=== PATIENT | male | born 1995 | race African-American/Black ===

== ENCOUNTER 2019-12-31 15:50 | Emergency (ER) | payer SELFPAY ==
[2019-12-31 16:14] VITALS: BP 139/94; PULSE 78; RESP 16; TEMP 36.5; O2SAT 99
--- NOTE | 2019-12-31 16:36 | ED.GENADULT ---
HPI - General Adult General Chief complaint: Upper Respiratory Infection Stated complaint: allergies Time Seen by Provider: 12/31/19 16:22 Source: patient and RN notes reviewed Mode of arrival: ambulatory Limitations: no limitations History of Present Illness HPI narrative: Patient presents today requesting a note to return to work. He called into work on 12/25/2019 with symptoms of runny nose, sneezing, headache. States these are normal allergy symptoms for him. He took a Claritin that day and felt better approximately 4 hours later. He does not currently have any symptoms. MD complaint: Return to work note Related Data Home Medications Medication Instructions Recorded Confirmed No Home Medications 12/31/19 12/31/19 Allergies Allergy/AdvReac Type Severity Reaction Status Date / Time No Known Allergies Allergy Verified 12/31/19 16:16 Review of Systems Review of Systems: Narrative: CONSTITUTIONAL: Denies body aches, fever, chills, or sweats. EYES: Denies visual changes, redness, or discharge. ENT: Denies rhinorrhea, congestion, sore throat, or otalgia. CARDIOVASCULAR: Denies chest pain, palpitations, or edema. RESPIRATORY: Denies cough or dyspnea. GASTROINTESTINAL: Denies abdominal pain, nausea, vomiting, or diarrhea. GENITOURINARY: Denies dysuria or hematuria. SKIN: Denies rash, itching, or wounds. MUSCULOSKELETAL: Denies back pain, joint pain, or myalgia. NEUROLOGIC: Denies headache, numbness, tingling, or weakness. PSYCH: Denies depression or anxiety. PMFSH Social History Social History Gender identity (if verbalized by the patient): Male Comments At time of signature, I have reviewed and agree with nursing past medical, surgical, social and family history unless otherwise noted. Please see nursing chart for further information. There is no relevant family history pertinent to the presenting complaint Exam Narrative: Exam Narrative: GENERAL: Well-appearing, well-nourished, and in no acute distress. HEAD: Normocephalic, atraumatic. EYES: EOMI. No redness or drainage. Conjunctivae normal. ENT: Mucous membranes pink and moist. Nares clear. No rhinorrhea. TMs normal bilaterally. Throat normal. Uvula midline. NECK: Normal AROM. Supple. No lymphadenopathy. CHEST: No respiratory distress. Clear to auscultation. HEART: Regular rate and rhythm. No murmur appreciated. Normal peripheral pulses. EXTREMITIES: Normal range of motion. No edema. SKIN: Warm, dry, no rash. Capillary refill normal. Normal skin turgor. NEURO: No focal deficits. Alert and oriented x3. Gait steady. PSYCH: Normal affect. No signs of depression or anxiety. Course Vital Signs Vital signs: Vital Signs Temperature 97.7 F 12/31/19 16:14 Pulse Rate 78 12/31/19 16:14 Respiratory Rate 16 12/31/19 16:14 Blood Pressure 139/94 H 12/31/19 16:14 Pulse Oximetry 99 12/31/19 16:14 Temperature 97.7 F 12/31/19 16:14 Pulse Rate 78 12/31/19 16:14 Respiratory Rate 16 12/31/19 16:14 Blood Pressure 139/94 H 12/31/19 16:14 Pulse Oximetry 99 12/31/19 16:14 Reviewed. Pt has been instructed to follow up with his PCP regarding his elevated blood pressure today. Medical Decision Making Differential Diagnosis Differential Diagnosis: URI, rhinitis, seasonal allergies, sinusitis Vital Signs Vital Signs: Vital Signs Temperature 97.7 F 12/31/19 16:14 Pulse Rate 78 12/31/19 16:14 Respiratory Rate 16 12/31/19 16:14 Blood Pressure 139/94 H 12/31/19 16:14 Pulse Oximetry 99 12/31/19 16:14 Temperature 97.7 F 12/31/19 16:14 Pulse Rate 78 12/31/19 16:14 Respiratory Rate 16 12/31/19 16:14 Blood Pressure 139/94 H 12/31/19 16:14 Pulse Oximetry 99 12/31/19 16:14 Critical Care Time Critical Care Time Critical Care Time: No Discharge Plan Discharge Clinical Impression: Encounter to obtain excuse from work Patient Disposition: Home, Self-Care Condition: Stable Instruct
== END 2019-12-31 16:40 | disposition home or self-care (01) ==
PROVIDERS: Emergency Provider Nurse Practitioner
DX: Z02.89 Encounter for other administrative examinations (principal); R03.0 Elevated blood-pressure reading, without diagnosis of hypertension
CPT/HCPCS: 99201; G0463

== ENCOUNTER 2020-03-07 17:37 | Emergency (ER) | payer OTHER, SELFPAY ==
[2020-03-07 17:38] VITALS: BP 155/79; PULSE 78; RESP 18; TEMP 36.2; O2SAT 98
--- NOTE | 2020-03-07 19:00 | ED.WOUNDLAC ---
HPI - Wound/Laceration General Chief Complaint: Wound/Laceration Stated Complaint: finger lac Time Seen by Provider: 03/07/20 17:57 Source: patient Mode of arrival: ambulatory Limitations: no limitations History of Present Illness HPI narrative: Patient is a 24-year-old male who presents with laceration of the mid phalanx of the left index finger that occurred just prior to arrival patient cut the finger on a sharp piece of metal. Patient has mild aching pain worse with touch and activity. Patient notes that the tetanus is not up-to-date. Patient denies radicular symptoms or paresthesias or other complaints yesterday. Related Data Home Medications Medication Instructions Recorded Confirmed No Home Medications 12/31/19 12/31/19 Allergies Allergy/AdvReac Type Severity Reaction Status Date / Time No Known Allergies Allergy Verified 03/07/20 17:37 Review of Systems Review of Systems: All systems reviewed & are unremarkable except as noted in HPI and below PMFSH Social History Social History Gender identity (if verbalized by the patient): Male Exam Narrative: Exam Narrative: GENERAL: Well-appearing, well-nourished, and in no acute distress. HEAD: Normocephalic, atraumatic. EYES: PERRLA and EOMI. ENT: Nares clear, no rhinorrhea or epistaxis. Mucous membranes moist. EXTREMITIES: Normal range of motion. No edema. SKIN: Warm, dry, no rash. 2 cm superficial linear laceration of the mid phalanx of the left index finger palmar surface NEURO: No focal deficits. Alert and oriented x3. Neurovascularly intact PSYCH: Normal mood and affect. Course Course Emergency Course: Patient in the room in no distress aware of case findings treatment plan and diagnosis Vital Signs Vital signs: Vital Signs Temperature 97.1 F L 03/07/20 17:38 Pulse Rate 78 03/07/20 17:38 Respiratory Rate 18 03/07/20 17:38 Blood Pressure 155/79 H 03/07/20 17:38 Pulse Oximetry 98 03/07/20 17:38 Temperature 97.1 F L 03/07/20 17:38 Pulse Rate 78 03/07/20 17:38 Respiratory Rate 18 03/07/20 17:38 Blood Pressure 155/79 H 03/07/20 17:38 Pulse Oximetry 98 07/12/20 17:38 Procedures Laceration Laceration 1: Date: 03/07/20 Time: 19:02 Site: upper extremity Side (If applicable): left Size (cm): 2 Description: linear Depth: simple, single layer Local Anesthetic: lidocaine 1% Pre-repair: wound explored, irrigated and irrigated extensively ====== Skin Level ====== Skin layer closed with: nylon Size (cm): 5-0 Number of sutures: 4 ====== Subcutaneous Layer ====== ====== Muscle Layer ====== ====== Tendon Layer ====== Dressing: Antibiotic ointment nonadhesive 4 x 4 and Coban placed post procedure MDM - Wound/Laceration MDM Narrative Medical decision making narrative: Patients injury or pain is consistent with musculoskeletal etiology. No signs of neurological or vascular compromise on exam. Compartments and tisues are soft without signs of compartment syndrome. Pain is felt appropriate for further evaluation on an outpatient basis. Patient given tetanus and had wound closed in the emergency department provided with reasons to return Discharge Plan Discharge Clinical Impression: Laceration Patient Disposition: Home, Self-Care Condition: Stable Instructions: Antibiotic Form, Laceration (DC) Additional Instructions: Keep wound clean and dry. Do not soak, take baths, or swim until wound is completely healed. If any signs of infection such as redness, swelling, increasing pain, drainage of purulent discharge, streaks up your extremity develop, seek medical attention immediately. Followup with your primary care provider in [7] days for suture removal. [] Prescriptions: No Action No Home Medications RF: 0 Follow-up/Referrals: [facility]
[2020-03-07] MEDS: TETANUS,DIPHTHERIA,AC PERTUSSIS ADULT (0.5 ML) BOOSTRIX IM (19:01)
[2020-03-07 19:21] VITALS: BP 140/88; PULSE 70; RESP 20; O2SAT 98
== END 2020-03-07 19:25 | disposition home or self-care (01) ==
PROVIDERS: Emergency Provider Emergency Medicine
DX: S61.211A Laceration without foreign body of left index finger without damage to nail, initial encounter (principal); W26.8XXA Contact with other sharp object(s), not elsewhere classified, initial encounter; Z23 Encounter for immunization
CPT/HCPCS: 12001; 90471; 90715; 99282

== ENCOUNTER 2020-09-24 20:02 | Emergency (ER) | payer OTHER, SELFPAY ==
--- NOTE | ~2020-09-24 | CT_ITS ---
EXAMINATION: CT abdomen pelvis w con DATE: 09/24/2020 21:01 INDICATION: Left upper quadrant abdominal pain TECHNIQUE: Computed tomography (CT) of the abdomen and pelvis was performed with 100 cc Omnipaque 350 intravenous contrast. Automated exposure control and iterative reconstruction technique were employe d. Exam dose: 430.38 mGy-cm total exam DLP. COMPARISON: None. FINDINGS: The lung bases are clear. Normal heart size. No pericardial or pleural effusion. The liver, gallbladder, bile ducts, spleen are unremarkable. No bile duct dilatation. There is peripancreatic fluid and fluid along the left anterior pararenal fascia, suggesting acute in terstitial edematous pancreatitis. No abscess is evident. No pancreatic calcification or ductal dilat ation. No pancreatic mass lesion is evident. Normal morphology of the adrenal glands. No renal mass lesion. No urinary tract calculus or hydroureteronephrosis. The urinary bladder is unre markable. Normal prostate gland and seminal vesicles. Normal caliber of the abdominal aorta. No intraperitoneal or retroperitoneal or pelvic mass lesion or adenopathy or ascites. Normal appendix. No bowel obstruction, bowel wall thickening, pneumatosis or intraperitoneal free air . Transitional first sacral vertebra. IMPRESSION: Acute interstitial edematous pancreatitis Reviewed, dictated and finalized at [facility] Reviewed, dictated and finalized at [facility]. ESSORI PROGRAM DIRECTOR
[2020-09-24 20:07] VITALS: PULSE 112; RESP 24; TEMP 36.8; O2SAT 100
--- NOTE | 2020-09-24 20:12 | ECG_ITS ---
Measurements Intervals [place] Rate: 102 P: 72 [place]: 139 QRS: 52 QRSD: 89 T: 31 QT: 332 QTc: 434 Interpretive Statements SINUS TACHYCARDIA MINIMAL Q WAVES- ANTEROLAT/HIGH LAT LEADS BORDERLINE ECG Electronically Signed On 09-24-2020 21:57:53 MACHINE STUFFER by Danny Villarreal D.O.
[2020-09-24 20:28] LABS: Basophils Percent Auto 0.3 % (0.2-1.2); Eosinophils Absolute Auto 0.1 K/mm3 (0-0.3); Hematocrit 45.9 % (42.0-52.0); Hemoglobin 15.3 g/dL (14.0-18.0); Immature Granulocyte Absolute 0.03 K/mm3 (0.00-0.031); Immature Granulocyte Percent A 0.3 % (0-0.5); Lymphocytes Absolute Auto 2.24 K/mm3 (0.9-3.2); Lymphocytes Percent Auto 21.2 % (18.3-44.2); Mean Corpuscular HGB Conc 33.3 g/dl (32-36); Mean Corpuscular Hemoglobin 28.5 pg (26-34); Mean Corpuscular Volume 85.6 fl (80-100); Mean Platelet Volume 8.8 fl (7.4-10.4); Monocytes Absolute Auto 1.2 K/mm3 (0.1-0.6); Monocytes Percent Auto 11.4 % (2.6-8.5); Neutrophils Percent Auto 65.8 % (45.5-73.1); Platelet Count Result 316 k/mm3 (150-375); Red Blood Count 5.36 M/mm3 (4.6-6.20); Red Cell Distribution Width 13.4 % (11.5-14.5); White Blood Count 10.6 K/mm3 (4.5-10.0)
--- NOTE | 2020-09-24 20:30 | ED.CHESTPAIN ---
HPI - Chest Pain General Chief Complaint: Chest Pain Stated Complaint: chest pain Time Seen by Provider: 09/24/20 20:09 Source: patient Mode of arrival: ambulatory Limitations: no limitations History of Present Illness HPI narrative: A 25-year-old male comes into the emergency department with complaints of chest pain. When asked the patient actually motions more towards his left upper quadrant for the chest pain. He states that coughing sneezing and certain movements do seem to make this worse. He does also note that eating and drinking have made it worse. Patient states that he had 1 beer yesterday, denies any other alcohol use. He states that he has been nauseated but not vomited. He denies any changes to his bowels. Related Data Allergies Allergy/AdvReac Type Severity Reaction Status Date / Time No Known Allergies Allergy Verified 09/24/20 20:11 Review of Systems Review of Systems: Narrative: CONSTITUTIONAL: Denies fever, chills, or sweats. EYES: Denies visual changes, redness, or discharge. ENT: Denies rhinorrhea, congestion, sore throat, or otalgia. CARDIOVASCULAR: Denies chest pain, palpitations, or edema. RESPIRATORY: Denies cough or dyspnea. GASTROINTESTINAL: Denies nausea, vomiting, or diarrhea. Endorses abdominal pain GENITOURINARY: Denies dysuria or hematuria. SKIN: Denies rash or itching. MUSCULOSKELETAL: Denies back pain, joint pain, or myalgia. NEUROLOGIC: Denies headache, numbness, dizziness, or weakness. PSYCHIATRIC: Denies anxiety or depression. [facility] Social History Social History Gender identity (if verbalized by the patient): Male Exam Narrative: Exam Narrative: GENERAL: Well-appearing, well-nourished, and in no acute distress. HEAD: Normocephalic, atraumatic. EYES: PERRLA and EOMI. ENT: Nares clear, no rhinorrhea or epistaxis. Mucous membranes moist. Oropharynx without tonsillar hypertrophy exudate or other lesions. Bilateral TMs pearly arango nonbulging NECK: Supple. No adenopathy or masses. No carotid bruits or JVD CHEST: Clear to auscultation. No respiratory distress. No wheezes rales or rhonchi HEART: Regular rate and rhythm. No murmur heard. Normal peripheral pulses. ABDOMEN: Soft, nondistended, normal active bowel sounds. Tenderness to palpation of the left upper quadrant EXTREMITIES: Normal range of motion. No edema. SKIN: Warm, dry, no rash. NEURO: No focal deficits. Alert and oriented x3. PSYCH: Normal mood and affect. Course Reevaluation(s) Reevaluation #1: Reevaluated patient and provided care update. Patient states that he is feeling somewhat better after the pain medicines. Informed him of his diagnosis of pancreatitis and explained to him the treatment plan. Patient politely declines admission to the hospital at this time. I did offer to him again explaining the process that his pain could get worse. Patient again states that he understands but is scared of hospitals and does not want to stay he would prefer to go home and treat himself there. Because of this I did spend a great length of time explaining to the patient that he will need to be on clear liquids for the next couple of days, I will prescribe him pain medicines and nausea medicines. Patient verbalizes understanding of the plan. I did inform him that if he gets worse he is welcome to come back to the emergency department at any time. Time: 21:54 Vital Signs Vital signs: Vital Signs Temperature 36.8 C 09/24/20 20:07 Pulse Rate 112 H 09/24/20 20:07 Respiratory Rate 24 H 09/24/20 20:07 Pulse Oximetry 100 09/24/20 20:07 Temperature 36.8 C 09/24/20 20:07 Pulse Rate 112 H 09/24/20 20:07 Respiratory Rate 24 H 09/24/20 20:07 Pulse Oximetry 100 09/24/20 20:07 MDM - Chest Pain MDM Narrative Medical decision making narrative: In brief this 25-year-old male comes into the emergency department with complaints of he described as chest pain reese
[2020-09-24 20:44] LABS: Alanine Aminotransferase 48 U/L (4-50); Albumin Level 4.6 g/dL (3.5-5.1); Alkaline Phosphatase 70 U/L (38-126); Anion Gap 6 mmol/L (8-16); Aspartate Amino Transferase 67 U/L (17-59); Bilirubin,Total 0.7 mg/dL (0.2-1.3); Blood Urea Nitrogen 12 mg/dL (9-20); Calcium 9.4 mg/dL (8.4-10.2); Carbon Dioxide 27 mmol/L (22-30); Chloride 102 mmol/L (98-107); Estimated CRCL calculation 90 ml/min; Estimated Glomerular Filt Rate > 60; Glucose 108 mg/dL (75-110); Lipase 427 U/L (23-300); Potassium 3.9 mmol/L (3.4-5.0); Sodium 135 mmol/L (137-145)
[2020-09-24] MEDS: LACTATED RINGERS 1,000 ML 999 ML IV CONT (20:46)
[2020-09-24] MEDS: BELLADONNA ALK/PHENOB ELIX 10 ML, MAG HYDROX/ALUMINUM HYD/SIMETH 30 ML, LIDOCAINE HCL 2... PO (20:46)
[2020-09-24] MEDS: KETOROLAC 15 MG/ML VIAL (*BKC) IV PUSH (20:47)
[2020-09-24 20:55] LABS: Troponin I < 0.012 ng/mL (0.000-0.034)
--- NOTE | 2020-09-24 22:07 | PC.NURSE ---
received report from Adele PETERSEN. patient here with left sided chest pain. (+) pancreatitis. waiting for all tests to be resulted.
[2020-09-24 22:37] VITALS: BP 162/86; PULSE 89; O2SAT 100
== END 2020-09-24 22:24 | disposition home or self-care (01) ==
PROVIDERS: Emergency Provider Emergency Medicine
DX: U07.1 COVID-19 (principal); K85.00 Idiopathic acute pancreatitis without necrosis or infection; R00.0 Tachycardia, unspecified; R94.31 Abnormal electrocardiogram [ECG] [EKG]
CPT/HCPCS: 36415; 74177; 80053; 83690; 84484; 85025; 93005; 96361; 96374; 99284; A9270; J1885; J7120; Q9967

== ENCOUNTER 2020-12-05 03:24 | Emergency (ER) | payer SELFPAY ==
[2020-12-05] VITALS (8 sets, daily range): BP systolic 111–151; BP diastolic 81–108; PULSE 88–114; RESP 16–20; TEMP 36.7; O2SAT 97–100
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
--- NOTE | ~2020-12-05 | XR_ITS ---
EXAMINATION: XR chest 1V portable EXAM DATE: 12/05/2020 04:11 INDICATION: Shortness of breath. Trauma. TECHNIQUE: Portable AP frontal chest x-ray was obtained. There is no prior study for comparison. FINDINGS: The lungs are clear. There are no pleural effusions. The cardiomediastinal silhouette is within normal limits. There is no pneumothorax suspected. The bones and soft tissues are unremarkab le. IMPRESSION: No acute cardiopulmonary findings. Reviewed, dictated and finalized at [facility].
[2020-12-05] MEDS: LORazepam INJ (*CRX) 2 MG/ML VIAL 1 MG IV PUSH (03:45)
[2020-12-05] MEDS: SODIUM CHLORIDE 0.9% IV 1,000 ML 999 ML IV CONT (03:45)
[2020-12-05 03:49] LABS: Basophils Absolute Auto 0.1 K/mm3 (0.0-0.1); Basophils Percent Auto 1.1 % (0.2-1.2); Eosinophils Percent Auto 0.5 % (0-4.4); Hematocrit 47.4 % (42.0-52.0); Hemoglobin 15.4 g/dL (14.0-18.0); Immature Granulocyte Absolute 0.03 K/mm3 (0.00-0.031); Immature Granulocyte Percent A 0.5 % (0-0.5); Lymphocytes Absolute Auto 2.66 K/mm3 (0.9-3.2); Lymphocytes Percent Auto 48.2 % (18.3-44.2); Mean Corpuscular HGB Conc 32.5 g/dl (32-36); Mean Corpuscular Hemoglobin 27.9 pg (26-34); Mean Platelet Volume 8.5 fl (7.4-10.4); Monocytes Absolute Auto 0.5 K/mm3 (0.1-0.6); Monocytes Percent Auto 8.3 % (2.6-8.5); Neutrophils Absolute Auto 2.3 K/mm3 (1.3-6.7); Neutrophils Percent Auto 41.4 % (45.5-73.1); Platelet Count Result 366 k/mm3 (150-375); Red Blood Count 5.51 M/mm3 (4.6-6.20); Red Cell Distribution Width 15.5 % (11.5-14.5); White Blood Count 5.5 K/mm3 (4.5-10.0)
[2020-12-05 04:03] LABS: Ethanol 298 mg/dL (<10)
[2020-12-05 04:05] LABS: Alanine Aminotransferase 38 U/L (4-50); Albumin Level 4.8 g/dL (3.5-5.1); Alkaline Phosphatase 54 U/L (38-126); Anion Gap 12 mmol/L (8-16); Aspartate Amino Transferase 49 U/L (17-59); Blood Urea Nitrogen 13 mg/dL (9-20); Calcium 8.6 mg/dL (8.4-10.2); Carbon Dioxide 25 mmol/L (22-30); Chloride 110 mmol/L (98-107); Estimated Glomerular Filt Rate > 60; Glucose 102 mg/dL (75-110); Potassium 3.9 mmol/L (3.4-5.0); Sodium 147 mmol/L (137-145)
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
[2020-12-05 05:01] LABS: Amphetamine Screen Urine Negative (Negative); Barbiturate Screen Urine Negative (Negative); Benzodiazepines Screen Urine Negative (Negative); Cannabinoid Screen Urine Negative (Negative); Cocaine Screen Urine Negative (Negative); Methadone Screen Urine Negative (Negative); Opiate Screen Urine Negative (Negative); Phencyclidine Screen Urine Negative (Negative)
--- NOTE | 2020-12-05 05:23 | PC.NURSE ---
Pt is sleeping. Pt has not been having any more episodes of erratic breathing. Brother at bedside.
--- NOTE | 2020-12-05 07:10 | PC.NURSE ---
Report received from NICOLA Hawkins. Pt resting comfortably on stretcher. Denies needs at present.
--- NOTE | 2020-12-05 09:10 | PC.NURSE ---
Pt ambulatory around ED with agricultural engineering technicians. Pt alert. Denies dizziness. States is feeling fine and ready to go home. Dr. Novak aware. Pt's family member at bedside and states he is driving home.
== END 2020-12-05 09:25 | disposition home or self-care (01) ==
PROVIDERS: Emergency Provider Emergency Medicine
DX: F10.129 Alcohol abuse with intoxication, unspecified (principal); Y90.8 Blood alcohol level of 240 mg/100 ml or more
CPT/HCPCS: 36415; 70450; 71045; 80053; 80307; 85025; 96361; 96374; 99284; J2060; J7030

== ENCOUNTER 2021-08-08 16:24 | Inpatient (IN) | payer SELFPAY ==
--- NOTE | ~2021-08-08 | US_ITS ---
EXAMINATION: US abdomen limited DATE: 08/09/2021 12:05 INDICATION: Pancreatitis. Elevated liver function tests TECHNIQUE: Multiple grayscale and Doppler ultrasound images of the abdomen were obtained. COMPARISON: CT dated 08/09/2021 FINDINGS: The pancreatic head and body are normal in appearance. The region of the pancreatic tail which on pr ior CT demonstrated peripancreatic edema and parenchymal necrosis is not clearly visualized. Liver gaviria s normal echogenicity and contour, with a smooth surface. No liver lesion identified. No intrahepatic biliary duct dilation suspected. Portal venous flow was seen in the hepatopetal, normal direction an d has normal Doppler waveform. The gallbladder is normal in appearance. There is no cholelithiasis. The common bile duct measures 3 mm, which is normal. Sonographic Allsion sign was reported as negative by the drawer waxer. IMPRESSION: 1. Normal right upper quadrant ultrasound. The region of necrotic pancreatitis seen at the tail of th e pancreas on prior CT is not clearly visualized. Reviewed, dictated and finalized at location A. WARE PROGRAM MANAGER IMPRESSION: 1. Normal right upper quadrant ultrasound. The region of necrotic pancreatitis seen at the tail of the pancreas on prior CT is not clearly visualized.
--- NOTE | ~2021-08-08 | US_ITS ---
EXAMINATION: US venous doppler [facility] DATE: 08/09/2021 12:05 INDICATION: Chest pain, COVID positive and elevated d-dimer. TECHNIQUE: Grayscale ultrasound images without and with compression and Doppler ultrasound images of the bilateral lower extremity veins were obtained. COMPARISON: None. FINDINGS: The visualized portions of right common femoral vein, profunda (deep) femoral vein, femoral vein, pop liteal vein, posterior tibial veins, peroneal veins, gastrocnemius vein and greater saphenous vein ou tflow are patent. The visualized portions of left common femoral vein, profunda femoral vein, femoral vein, popliteal v ein, posterior tibial veins, peroneal veins, gastrocnemius vein and greater saphenous vein outflow ar e patent. IMPRESSION: 1. No deep venous thrombosis in either lower limb. Reviewed, dictated and finalized at location A. NA
--- NOTE | ~2021-08-08 | CT_ITS ---
EXAMINATION: CTA chest PE abdomen pel DATE: 08/09/2021 01:39 INDICATION: Left lower chest pain. COVID-19 positive. TECHNIQUE: Computed tomography angiography (CTA) of the chest was performed with 100 mL Omnipaque-350 intravenous contrast timed to evaluate the pulmonary arteries. Coronal maximum intensity projection 3D-reconstructions were created by the technologist. Computed tomography (CT) of the abdomen and pelv is was performed with intravenous contrast. Automated exposure control and iterative reconstruction t echnique were employed. The dose-length product was 597.01 mGy-cm. COMPARISON: CT abdomen and pelvis 09/24/2020 FINDINGS: CTA chest: There are centrilobular groundglass opacities in right lower lobe. Calcified left hilar ly mph nodes are consistent with old granulomatous disease. No pleural effusion. There is no pulmonary e mbolus. CT abdomen and pelvis: The liver and gallbladder are normal. Calcifications in the spleen are consist ent with old granulomatous disease. There is fat stranding and fluid around the pancreas. There is hy poenhancement of the tail of the pancreas. The adrenal glands and kidneys are normal. There are no di lated loops of bowel. The appendix is not visualized. There are no pathologically enlarged lymph node s. There is mild lumbar spondylosis. IMPRESSION: 1. Acute necrotizing pancreatitis. 2. Mild groundglass opacities in right lung lower lobe, consistent with pneumonia. Reviewed, dictated and finalized at location A. GER PLANT IMPRESSION: 1. Acute necrotizing pancreatitis. 2. Mild groundglass opacities in right lung lower lobe, consistent with pneumon ia.
--- NOTE | ~2021-08-08 | XR_ITS ---
EXAMINATION: XR abdomen obstructive series DATE: 08/10/2021 10:05 INDICATION: Adynamic ileus. Pancreatitis. TECHNIQUE: Upright and supine views of the abdomen were obtained. COMPARISON: CT abdomen and pelvis 08/09/2021 FINDINGS: There are no dilated loops of bowel. There is a paucity of stool in the colon. No free intr aperitoneal gas. IMPRESSION: 1. Nonobstructive bowel gas pattern. Reviewed, dictated and finalized at location A. NSTRUCTIVE SURGEON
--- NOTE | ~2021-08-08 | CT_ITS ---
EXAMINATION: CT abdomen pelvis w con DATE: 08/15/2021 09:09 INDICATION: Abdominal pain. Pancreatitis. TECHNIQUE: Computed tomography (CT) of the abdomen and pelvis was performed with 100 mL Omnipaque 350 intravenous contrast. Automated exposure control and iterative reconstruction technique were employe d. The dose-length product was 607.27 mGy-cm. COMPARISON: CT abdomen and pelvis 08/09/2021 FINDINGS: The visualized portions of the lung bases demonstrate mild atelectasis. There is a small le ft pleural effusion. The heart size is normal. No pericardial effusion. Calcified left hilar lymph no patrica are consistent with old granulomatous disease. The liver and spleen are normal. There is fluid an d soft tissue attenuation and fat stranding around the pancreas with peripheral enhancement. There is hypoenhancement in the tail of the pancreas. The adrenal glands and kidneys are normal. The appendix is normal. There are no dilated loops of bowel. There are no pathologically enlarged lymph nodes. Th ere is trace pelvic ascites. There is mild thoracolumbar spondylosis. IMPRESSION: 1. Worsened acute necrotizing pancreatitis. 2. Worsened small left pleural effusion. Reviewed, dictated and finalized at location A. ACCOUNTANT
--- NOTE | ~2021-08-08 | XR_ITS ---
EXAMINATION: XR chest 1V portable DATE: 08/09/2021 00:15 INDICATION: Lower mid chest pain. Left upper quadrant abdominal pain. TECHNIQUE: A single frontal view of the chest was obtained. COMPARISON: CT 08/09/2021 FINDINGS: The chest demonstrates clear lungs without pneumonia, pleural effusion, or pneumothorax. Th e heart size is normal. Calcified left hilar lymph nodes are consistent with old granulomatous diseas e. IMPRESSION: 1. No acute cardiopulmonary disease. Reviewed, dictated and finalized at location A. K BOLTER MULE OPERATOR
--- NOTE | ~2021-08-08 | XR_ITS ---
EXAMINATION: XR chest 1V portable DATE: 08/18/2021 21:47 INDICATION: Sternal chest pain radiating to the back TECHNIQUE: frontal view of the chest was obtained. COMPARISON: Chest radiograph and CT dated 08/09/2021 FINDINGS: Mild streaky atelectasis at the left lung base. No other airspace opacities, pulmonary edema, pleural effusion or pneumothorax. The cardiomediastinal silhouette is normal. Visualized bones and soft tiss ues are unremarkable. IMPRESSION: 1. Mild streaky left basilar atelectasis. Reviewed, dictated and finalized at location H. ING BENCH WORKER
[2021-08-08 16:45] VITALS: BP 130/88; PULSE 100; RESP 18; TEMP 35.6; O2SAT 100
--- NOTE | 2021-08-08 16:48 | ECG_ITS ---
Measurements Intervals [place] Rate: 104 P: 71 FL: 128 QRS: 63 QRSD: 88 T: 50 QT: 331 QTc: 436 Interpretive Statements SINUS TACHYCARDIA MINIMAL Q WAVES- DIFFUSE LEADS NONSPECIFIC T-WAVE ABNORMALITY- INFERIOR LEADS BASELINE ARTIFACT- I, III, AVL BORDERLINE ECG Electronically Signed On 08-08-2021 16:53:43 ELECTRICAL MAINTENANCE WORKER by Danny Villarreal D.O.
[2021-08-08 19:25] VITALS: BP 155/101; PULSE 108; RESP 24; TEMP 36.8; O2SAT 100
[2021-08-08 23:53] VITALS: BP 161/108; PULSE 102; RESP 22; O2SAT 99
--- NOTE | 2021-08-08 23:55 | ED.GENADULT ---
HPI - General Adult General Chief complaint: Unspecified Stated complaint: Covid + 08/05/21 difficulty breathing Time Seen by Provider: 08/08/21 23:46 Source: patient History of Present Illness HPI narrative: Patient presents with abdominal pain nausea vomiting diarrhea. Patient reports he recently diagnosed with Covid and was initially doing well however today felt left upper quadrant abdominal pain/left lower chest pain. Pain is sharp, constant, worse with deep inspiration alleviated by laying on his left side radiates across his abdomen and into his chest. He also reports nausea vomiting and diarrhea which started today reports minimal change in his shortness of breath since diagnosed with Covid. He has not noted any fevers. Related Data Allergies Allergy/AdvReac Type Severity Reaction Status Date / Time No Known Allergies Allergy Verified 12/05/20 05:25 Review of Systems Review of Systems: CONSTITUTIONAL: Denies fever, chills, or sweats. EYES: Denies visual changes, redness, or discharge. ENT: Denies rhinorrhea, congestion, sore throat, or otalgia. CARDIOVASCULAR: Denies palpitations, or edema. RESPIRATORY: Denies cough or dyspnea. GASTROINTESTINAL: Reports abdominal pain, nausea, vomiting, diarrhea GENITOURINARY: Denies dysuria or hematuria. SKIN: Denies rash or itching. MUSCULOSKELETAL: Denies back pain, joint pain, or myalgia. NEUROLOGIC: Denies headache, numbness, dizziness, or weakness. PSYCHIATRIC: Denies anxiety or depression. All systems reviewed & are unremarkable except as noted in HPI and below PMFSH Past Medical History Medical History Patient denies significant medical history Social History Social History Smoking status: Never smoker Second hand tobacco smoke exposure: No Alcohol intake: current Drinks per week: 2 Substance use: never Substance use type: does not use Gender identity (if verbalized by the patient): Male Spiritual care concerns: No Exam Narrative: GENERAL: Well-appearing, well-nourished, and in no acute distress. HEAD: Normocephalic, atraumatic. EYES: PERRLA and EOMI. ENT: Nares clear, no rhinorrhea or epistaxis. Mucous membranes moist. NECK: Supple. No masses. No JVD CHEST: Clear to auscultation. No respiratory distress. No wheezes rales or rhonchi HEART: Regular rate and rhythm. No murmur heard. Normal peripheral pulses. ABDOMEN: Mild tenderness of patient in the left upper quadrant soft, nondistended EXTREMITIES: Normal range of motion. No edema. SKIN: Warm, dry, no rash. NEURO: No focal deficits. Alert and oriented x3. PSYCH: Normal mood and affect. Course Reevaluation(s) Reevaluation #1: Patient continues to have pain. Work-up reviewed with patient primary concern is for pancreatitis. Patient has similar episode back pain Susan he reports this episode has more severe pain he also has elevated LFTs which not present previously. Given his continued pain and additional lab abnormalities patient benefit from inpatient evaluation patient is calm patient plan. Date: 08/09/21 Time: 02:30 Vital Signs Vital signs: Vital Signs Temperature 35.6 C L 08/08/21 16:45 Pulse Rate 100 08/08/21 16:45 Respiratory Rate 18 08/08/21 16:45 Blood Pressure 130/88 08/08/21 16:45 Pulse Oximetry 100 08/08/21 16:45 Temperature 36.8 C 08/08/21 19:25 Pulse Rate 87 08/09/21 02:42 Respiratory Rate 21 H 08/09/21 02:42 Blood Pressure 158/115 H 08/09/21 02:42 Pulse Oximetry 98 08/09/21 02:42 Medical Decision Making [facility] Narrative Medical decision making narrative: Patient presents with left lower chest and left upper quadrant abdominal pain. Patient overall looks clinically well labs and imaging obtained. Labs notable for elevated lipase and elevated AST and ALT. As well as elevated lactate and white count. Patient also noted to have elevated
--- NOTE | 2021-08-09 00:01 | ECG_ITS ---
Measurements Intervals [place] Rate: 111 P: 69 CT: 124 QRS: 59 QRSD: 85 T: 52 QT: 322 QTc: 439 Interpretive Statements SINUS TACHYCARDIA POSSIBLE LEFT ATRIAL ENLARGEMENT NONSPECIFIC T-WAVE ABNORMALITY- INFERIOR LEADS BASELINE ARTIFACT- II, III, AVL, AVF, V4-V6 ABNORMAL ECG Electronically Signed On 08-09-2021 7:27:26 PROFESSOR OF SPORT MANAGEMENT by Danny Villarreal D.O.
[2021-08-09] MEDS: SODIUM CHLORIDE 0.9% IV 1,000 ML 999 ML IV CONT ×2 (00:03→02:39)
[2021-08-09] MEDS: KETOROLAC 30 MG/ML VIAL (*BKC) 15 MG IV PUSH ×2 (00:04→05:34)
[2021-08-09] MEDS: ONDANSETRON INJ 4 MG/2 ML VIAL IV PUSH ×2 (00:08→13:54)
[2021-08-09 00:16] LABS: Basophils Percent Auto 0.2 % (0.2-1.2); Hemoglobin 14.8 g/dL (14.0-18.0); Immature Granulocyte Absolute 0.07 K/mm3 (0.00-0.031); Immature Granulocyte Percent A 0.6 % (0-0.5); Lymphocytes Percent Auto 8.3 % (18.3-44.2); Mean Corpuscular HGB Conc 33.6 g/dl (32-36); Mean Corpuscular Volume 83.3 fl (80-100); Mean Platelet Volume 8.5 fl (7.4-10.4); Monocytes Absolute Auto 0.6 K/mm3 (0.1-0.6); Monocytes Percent Auto 4.7 % (2.6-8.5); Neutrophils Absolute Auto 10.3 K/mm3 (1.3-6.7); Neutrophils Percent Auto 86.2 % (45.5-73.1); Platelet Count Result 286 k/mm3 (150-375); Red Blood Count 5.28 M/mm3 (4.6-6.20); Red Cell Distribution Width 14.7 % (11.5-14.5)
[2021-08-09 00:17] LABS: Lactic Acid Reflex 3.5 mmol/L (0.7-2.1)
[2021-08-09 00:20] LABS: D Dimer 1.75 ug/mL (<0.48)
[2021-08-09 00:25] LABS: Albumin Level 4.1 g/dL (3.5-5.1); Alkaline Phosphatase 121 U/L (38-126); Anion Gap 13 mmol/L (8-16); Aspartate Amino Transferase 205 U/L (17-59); Bilirubin,Total 1.3 mg/dL (0.2-1.3); Blood Urea Nitrogen 12 mg/dL (9-20); Carbon Dioxide 23 mmol/L (22-30); Chloride 98 mmol/L (98-107); Estimated CRCL calculation 90 ml/min; Estimated Glomerular Filt Rate > 60; Glucose 125 mg/dL (65-110); Lipase 536 U/L (23-300); Potassium 4.1 mmol/L (3.4-5.0); Sodium 134 mmol/L (137-145)
[2021-08-09 00:34] LABS: Alanine Aminotransferase 188 U/L (4-50)
[2021-08-09 00:56] LABS: Add Urine Microscopic? YES; Appearance Urine Clear (Clear); Bilirubin Urine Negative (Negative); Blood Urine Negative (Negative); Color Urine Yellow (Yellow); Glucose Urine UA Negative (Negative); Ketones Urine Negative (Negative); Leukocyte Esterase Ur Negative LEU/UL (Negative); Mucus Urine Rare /lpf; Nitrate Urine Negative (Negative); Protein Urine 1+ mg/dL (Negative); Specific Grav Ur 1.026 (1.001-1.035); Urobilinogen Urine Negative mg/dL (<2.0); WBC Urine 0-3 /hpf
[2021-08-09] MEDS: MORPHINE SULFATE (*CRX) 4 MG/ML INJ IV PUSH ×4 (01:14→06:57)
[2021-08-09 01:15] VITALS: BP 158/111; PULSE 95; RESP 25; O2SAT 99
[2021-08-09 02:42] VITALS: BP 158/115; PULSE 87; RESP 21; O2SAT 98
[2021-08-09 03:03] LABS: Reflex Lactic Acid Yes or No Add Lactic
[2021-08-09 04:21] LABS: Lactic Acid 2.4 mmol/L (0.7-2.1)
[2021-08-09] MEDS: SODIUM CHLORIDE 0.9% IV 1,000 ML 125 ML IV CONT ×2 (05:33→17:02)
--- NOTE | 2021-08-09 06:18 | ADMGEN ---
This patient, Varsha Sun, was admitted to [facility] Surg Room 314-01. Patient/family oriented to hospital policies and general routines including ID bracelet, bed and alarms, visiting hours, pain management, procedures, bathroom and other care routines, personal items, smoking policy, room service/diet, and visiting hours. Information on how to activate the Rapid Response Team has been discussed. Patient/Family are encouraged to report perceived risks to care and to ask questions if they do not understand what they are told or what they should do.
--- NOTE | 2021-08-09 08:00 | PC.NURSE ---
Patient called RN and reported he is in the most excruciating pain of my life . Patient reported previously administered morphine only provided about ten minutes of relief and then the pain was back, I haven't been able to sleep at all . SN contacted hospitalist Lacie Stoddard and reported patients complaints. Lacie reported she would be in to assess patient prior to making any changes to medications. SN notified patient of conversation with Lacie.
[2021-08-09 09:06] LABS: Lactic Acid Reflex 2.4 mmol/L (0.7-2.1); Lipase 1921 U/L (23-300)
--- NOTE | 2021-08-09 10:17 | PM.IMHP ---
H&P: HPI History of Present Illness Date/Time: 08/09/21 10:17 Chief Complaint: Abdominal pain Narrative: Date of admission: 08/09/2021 Varsha Sun is a 26-year-old male with a history of hypertension and anxiety who presented to the emergency department on 08/08/2021 with complaints of vomiting and abdominal cramping. He stated this started when he tested positive for COVID on 08/05/2021. He was feeling weak and had body aches and then yesterday afternoon around 2:00 p.m., he began vomiting. His episodes of emesis caused him to have abdominal cramping to the point where he couldn't walk or could not really do anything.? He stated he had been in ?complete pain and ?the medicine has not done anything.? He describes a diffuse abdominal cramping all over that he rates as 10/10. He had a brief episode of improvement with the medication, during which his pain was rated 8/10, but he said this only lasted for about 20 minutes. He could not sleep at all last night. He says he cannot keep anything down. His last episode of emesis was yesterday afternoon in the parking lot as he was heading into the ED. He did note that there was some faint pink streaks in his emesis. He denies diarrhea, and reports he had a regular bowel movement yesterday afternoon. Denies blood in his stool. From a COVID standpoint, he reports he has been doing fairly well. He does endorse mild shortness of breath as well as dyspnea on exertion conversational dyspnea, but he is still able to complete his usual activities. He endorses cough that is nonproductive. He also states that he had a fever but he is not sure what his actual temperature was. He denies chills. He endorses loss of taste and smell as well as body aches. On presentation to the emergency department, his vital signs were stable, he was afebrile, WBC 12,000, additional CBC and BMP unremarkable, D-dimer noted to be elevated at 1.75, lipase 536, lactic acid 3.5, and CTA chest/abdomen/pelvis showed acute necrotizing pancreatitis with mild ground-glass opacities of the right lower lobe consistent with pneumonia and no pulmonary embolism. The patient tells me he had pancreatitis 1 other time last year when he was also COVID positive. He states he is unsure what caused this. At the time of my evaluation, he is still having severe pain that he rates 10/10 and is writhing around on his bed. I found him laying hunched over in bed on his knees. He tells me that he is feeling very dehydrated and requested immediate pain medication for relief. The patient has been admitted to the hospitalist service. Supervising physician for this history and physical is Dr. Rei Crowe, with whom I have discussed this case. Review of Systems Review of Systems: All systems reviewed with pertinent positives and negatives as per HPI. Additionally, patient denies dysuria, hematuria, urgency, or frequency. He denies dizziness or lightheadedness. He denies chest pain or palpitations. He reports that prior to yesterday afternoon, he was eating and drinking well and had not eaten anything out of his usual diet. He denies feeling anxious. He tells me that 5 of his coworkers tested positive for COVID, and therefore all employees were required to be tested. He has not received his COVID-19 vaccine. [facility] Past Medical History Medical History (Updated 08/09/21 @ 10:28 by Lacie Stoddard PA-C) Anxiety Hypertension Surgical History Surgical History (Updated 08/09/21 @ 10:37 by Lacie Stoddard PA-C) History of surgery Reattachment and ligament surgery of left 1st digit Family History Family History (Updated 08/09/21 @ 10:28 by Lacie Stoddard PA-C) Father Malignant neoplasm of prostate Cerebrovascular accident Mother Hypertension Social History Social History (Updated 08/09/21 @ 10:38 by Lacie Stoddard PA-C) Social History: Mr. Sun lives at home with his girlfriend and daughter. He is independen
[2021-08-09] MEDS: HYDROmorphone HCL INJ (*CRX) 1 MG/ML SYR 0.5 MG IV PUSH ×3 (10:32→21:46)
[2021-08-09] MEDS: amLODIPine BESYLATE 5 MG TABLET PO (11:17)
[2021-08-09 12:17] LABS: Triglycerides 624 mg/dL (<150)
[2021-08-09] MEDS: oxyCODONE HCL (*CRX) 2.5 MG TAB IR PO ×2 (12:56→17:02)
--- NOTE | 2021-08-09 13:44 | WPDGICN ---
Assessment and Plan Assessment and plan (1) Acute pancreatitis: Qualifiers: Acute pancreatitis complication: unspecified Pancreatitis type: unspecified pancreatitis type Qualified Code(s): K85.90 - Acute pancreatitis without necrosis or infection, unspecified Code(s): K85.90 - Acute pancreatitis without necrosis or infection, unspecified Status: Acute Assessment and Plan: Patient has significant acute pancreatitis. Necrotizing features are identified on the CT scan. Plan is for bowel rest. Pain control. He should be kept NPO initially. We will continue to monitor closely for signs of deterioration. Etiology is not immediately clear. The patient does drink alcohol routinely. Association with COVID is noted but cannot be confirmed as the etiology. He did have a previous episode of pancreatitis when he was previously COVID positive. Ultrasound of the gallbladder would be prudent but his body habitus does not suggest gallbladder disease. Continued supportive care for now is advised in long-term alcohol avoidance advised. Evaluating for other etiologies including triglyceride levels etc are suggested. (2) Elevated LFTs: Code(s): R79.89 - Other specified abnormal findings of blood chemistry Status: Acute Assessment and Plan: Elevated LFTs appear to be correlate with his pancreatitis. Will monitor these. (3) COVID-19: Code(s): U07.1 - COVID-19 Status: Acute Assessment and Plan: patient with active COVID infection. Will try to minimize any S invasive testing until his infection clears. He may wish to consider vaccination in the future. Continue supportive care per primary care service at present. GI Consult Note Consult date/time: 08/09/21 13:44 HPI: Varsha Sun is a 26 year old male I am asked to see because of abdominal pain with acute necrotizing pancreatitis. Patient recently found to have COVID after having cough and fever. Diagnosed on 08/05/2021. He remained at home and felt weak with body aches until yesterday in the afternoon when he began to have episodes of vomiting associated with rather significant left mid abdominal pain. He was unable to eat. He had notes no change in his bowel habits because of abdominal pressure is pain presented to the emergency room. Patient was found to have elevated lipase. CT scan consistent with necrotizing pancreatitis. Patient reports mild episode of pancreatitis that began 1 year ago when he previously was diagnosed with COVID infection. He states this lasted for about 3 days before resolving. Patient Admits to drinking several beers, 2 or 3 days a week. Review of Systems Review of Systems: All systems reviewed & are unremarkable except as noted in HPI and below PMFSH Past Medical History Medical History (Updated 08/09/21 @ 10:28 by Lacie Stoddard PA-C) Anxiety Hypertension Surgical History Surgical History (Updated 08/09/21 @ 10:37 by Lacie Stoddard PA-C) History of surgery Reattachment and ligament surgery of left 1st digit Family History Family History (Updated 08/09/21 @ 10:28 by Lacie Stoddard PA-C) Father Malignant neoplasm of prostate Cerebrovascular accident Mother Hypertension Social History Social History (Updated 08/09/21 @ 10:38 by Lacie Stoddard PA-C) Social History: Mr. Sun lives at home with his girlfriend and daughter. He is independent in his daily activities. He works for a [employer] company in [place], [place]. He cannot recall the name of his PCP, but states her name is Dr. Allen cordero that starts with a P. He states that she is leaving and he will need to find a new PCP. He designates his father, Joselito Sun, as his surrogate decision maker and he would like to be a full code. Tobacco type: e-cigarettes/vaping Additional smoking assessment comments: Vapes 2-3x/week for approx 10 minutes. Alcohol intake: current Drinks per we
[2021-08-09 14:20] VITALS: BP 172/119; PULSE 107; RESP 20; TEMP 36.1; O2SAT 100
[2021-08-09] MEDS: IBUPROFEN 600 MG TABLET PO (14:40)
[2021-08-09 22:00] VITALS: BP 158/114; PULSE 123; RESP 22; TEMP 36.7; O2SAT 98
[2021-08-10] MEDS: HYDROmorphone HCL INJ (*CRX) 1 MG/ML SYR 0.5 MG IV PUSH ×6 (01:52→23:23)
[2021-08-10 04:00] VITALS: BP 159/111; PULSE 127; RESP 22; TEMP 36.7; O2SAT 96
[2021-08-10] MEDS: SODIUM CHLORIDE 0.9% IV 1,000 ML 125 ML IV CONT ×2 (04:45→14:15)
--- NOTE | 2021-08-10 08:13 | WPDGIPROGNO ---
Progress Note: A&P Assessment and Plan (1) Acute necrotizing pancreatitis: Code(s): K85.91 - Acute pancreatitis with uninfected necrosis, unspecified Status: Acute Assessment and Plan: Patient with severe pancreatitis. Necrotizing features seen in the tail of the pancreas. This is unable to be visualized with the ultrasound which appears unremarkable. No gallstones identified. Because of ileus which appears new NG tube placement will be implemented. Continue to make patient NPO but will allow ice chips. Continued supportive care for now. Etiology of pancreatitis appears to be idiopathic at this point. Strict alcohol avoidance may be of some benefit. (2) Elevated LFTs: Code(s): R79.89 - Other specified abnormal findings of blood chemistry Status: Acute Assessment and Plan: Elevated LFTs felt to be secondary to pancreatitis. Will continue to monitor these labs. Not yet available from today. (3) COVID-19: Code(s): U07.1 - COVID-19 Status: Acute Assessment and Plan: COVID infection identified. Continued supportive care for now. Somewhat curious that his previous COVID infection also correlated with mild pancreatitis. (4) Ileus: Code(s): K56.7 - Ileus, unspecified Status: Acute Assessment and Plan: Patient now has ileus on the basis pancreatitis. Will continue bowel rest with NG tube decompression. Monitor KUB daily. Subjective Date/time seen: 08/10/21 08:13 Patient continues to complain of significant abdominal pain. States pain is more intense today. Notices abdominal distention and diffuse tenderness. Review of Systems Review of Systems: All systems reviewed & are unremarkable except as noted in HPI and below Exam Narrative: Physical exam reveals patient be afebrile. HEENT exam reveals no icterus. Lungs are clear. Heart without murmur. Abdomen is distended. Bowel sounds are absent. Modest tympany diffusely. Extremities are without clubbing cyanosis or edema. Objective Data Vital Signs Vital Signs: Vital Signs - 24 hr 08/09/21 14:20 08/09/21 22:00 08/10/21 04:00 Temperature 96.9 F L 98.1 F 98.1 F Pulse Rate 107 H 123 H 127 H Respiratory Rate 20 22 H 22 H Blood Pressure 172/119 H 158/114 H 159/111 H Pulse Oximetry 100 98 96 Intake/Output Intake/Output: Intake & Output 08/07/21 08/08/21 08/09/21 08/10/21 23:59 23:59 23:59 23:59 Intake Total 3100 1200 Balance 3100 1200 Meds/Results Medications: Active Medications Generic Name Dose Route Start Last Admin Trade Name Freq PRN Reason Stop Dose Admin Amlodipine Besylate 5 mg 08/09/21 10:15 08/09/21 11:17 Amlodipine Besylate 5 Mg Tablet PO 5 mg QAM GEOFFREY Administration Enoxaparin Sodium 40 mg 08/10/21 09:00 Enoxaparin 40 Mg/0.4 Ml Syringe SUB-Q DAILY GEOFFREY Hydromorphone HCl 0.5 mg 08/09/21 10:04 08/10/21 05:59 Hydromorphone Hcl Inj (*Crx) 1 Mg/Ml Syr IV PUSH 0.5 mg Q4H PRN Administration Pain Rated 7-10 Sodium Chloride 1,000 mls @ 100 mls/hr 08/09/21 02:40 08/10/21 04:45 Normal Saline Iv IV CONT 125 mls/hr .Q10H GEOFFREY Administration Ibuprofen 600 mg 08/09/21 10:05 08/09/21 14:40 Ibuprofen 600 Mg Tablet PO 600 mg Q6H PRN Administration Pain 1-3 Ondansetron HCl 4 mg 08/09/21 02:36 08/09/21 13:54 Ondansetron Inj 4 Mg/2 Ml Vial IV PUSH 4 mg Q4H PRN Administration Nausea Oxycodone HCl 2.5 mg 08/09/21 10:15 08/09/21 17:02 Oxycodone Hcl (*Crx) 2.5 Mg Tab Ir PO 2.5 mg Q4H PRN Administration Pain Rated 4-6 Radiology Results: ITS Impressions Chest X-Ray 08/09/21 08:42 IMPRESSION: 1. No acute cardiopulmonary disease. Chest/Abdomen/Pelvis CTA 08/09/21 08:43 IMPRESSION: 1. Acute necrotizing pancreatitis. 2. Mild groundglass opacities in right lung lower lobe, consistent with pneumonia. Venous Doppler Study 08/09/21 12:09 IMPRESSION: 1. No
[2021-08-10 08:36] LABS: Basophils Percent Auto 0.4 % (0.2-1.2); Eosinophils Absolute Auto 0.1 K/mm3 (0-0.3); Eosinophils Percent Auto 0.5 % (0-4.4); Hematocrit 44.7 % (42.0-52.0); Hemoglobin 14.8 g/dL (14.0-18.0); Immature Granulocyte Absolute 0.11 K/mm3 (0.00-0.031); Lymphocytes Absolute Auto 0.86 K/mm3 (0.9-3.2); Mean Corpuscular HGB Conc 33.1 g/dl (32-36); Mean Corpuscular Hemoglobin 28.3 pg (26-34); Mean Corpuscular Volume 85.5 fl (80-100); Monocytes Absolute Auto 1.4 K/mm3 (0.1-0.6); Monocytes Percent Auto 13.1 % (2.6-8.5); Neutrophils Absolute Auto 8.3 K/mm3 (1.3-6.7); Nucleated Red Blood Cells Perc 0.2 % (0.0-0.2); Platelet Count Result 211 k/mm3 (150-375); Red Blood Count 5.23 M/mm3 (4.6-6.20); Red Cell Distribution Width 15.4 % (11.5-14.5); White Blood Count 10.8 K/mm3 (4.5-10.0)
[2021-08-10] MEDS: amLODIPine BESYLATE 5 MG TABLET PO (08:44)
[2021-08-10] MEDS: ENOXAPARIN 40 MG/0.4 ML SYRINGE SUB-Q (08:44)
[2021-08-10 08:58] LABS: Alanine Aminotransferase 94 U/L (4-50); Albumin Level 3.3 g/dL (3.5-5.1); Alkaline Phosphatase 86 U/L (38-126); Aspartate Amino Transferase 64 U/L (17-59); Bilirubin,Total 1.4 mg/dL (0.2-1.3)
[2021-08-10 09:03] LABS: Lactic Acid Reflex 0.8 mmol/L (0.7-2.1)
[2021-08-10 09:56] LABS: Lipase 3285 U/L (23-300)
--- NOTE | 2021-08-10 10:30 | PC.NURSE ---
Attempted to place NG tube x 2. Patient unable to tolerate and pulled tube out of his nose as RN attempted to advance. Patient refused any further attempts to place NG stating, I can't do it, I just can't do it .
[2021-08-10 10:45] LABS: LDL Cholesterol Direct 76 mg/dL
[2021-08-10 12:36] LABS: Alanine Aminotransferase 96 U/L (4-50); Albumin Level 3.3 g/dL (3.5-5.1); Alkaline Phosphatase 83 U/L (38-126); Anion Gap 9 mmol/L (8-16); Aspartate Amino Transferase 60 U/L (17-59); Bilirubin,Total 1.5 mg/dL (0.2-1.3); Blood Urea Nitrogen 7 mg/dL (9-20); CRP 29.7 mg/dL (<1.0); Calcium 8.4 mg/dL (8.4-10.2); Carbon Dioxide 26 mmol/L (22-30); Chloride 99 mmol/L (98-107); Cholesterol 166 mg/dL (0-200); Estimated CRCL calculation 90 ml/min; Estimated Glomerular Filt Rate > 60; Glucose 107 mg/dL (65-110); HDL Direct 40 mg/dL; Lactate Dehydrogenase 617 U/L (313-618); Potassium 3.9 mmol/L (3.4-5.0); Sodium 134 mmol/L (137-145); Triglycerides 109 mg/dL (<150)
--- NOTE | 2021-08-10 13:26 | PC.NURSE ---
Spoke with Zoya at Dr. Da Silva's office regarding refusal of NG tube. Zoya was provided with patient's information and stated she would let Dr. Da Silva know .
[2021-08-10 14:23] VITALS: BP 153/113; PULSE 115; RESP 20; TEMP 37.3; O2SAT 97
--- NOTE | 2021-08-10 17:10 | P.PNIM_ITS ---
Progress Note: A&P Assessment and Plan (1) Acute necrotizing pancreatitis: Code(s): K85.91 - Acute pancreatitis with uninfected necrosis, unspecified Status: Acute Assessment and Plan: Presented with diffuse abdominal pain and vomiting. CTA shows acute necrotizing pancreatitis. Lipase was 427 on arrival and is increased to 3285 this morning. * NPO except for meds with sips and ice chips * Continue with IV fluid rehydration * Analgesics as needed. He cannot receive acetaminophen at this time based on his LFTs so his pain medication regimen has been adjusted. He did not have any improvement with IV morphine. He can have ibuprofen for pain 1-3 (monitor renal function closely), oxycodone 2.5 for pain 4-6, and Dilaudid 0.5 IV for pain 7-10. * Consult to Gastroenterology. Input is appreciated * Etiology for his pancreatitis is unclear. He is on hydrochlorothiazide at home which has been shown to contribute. Will discontinue at this time. Will also proceed with RUQ ultrasound and evaluate triglycerides. He drinks 4-6 beers per week, though he should avoid alcohol in the future to prevent recurrence of pancreatitis. * Per GI, because of ileus which appears new NG tube placement will be implemen zaheer. Continue to make patient NPO but will allow ice chips. (2) COVID-19: Code(s): U07.1 - COVID-19 Status: Acute Assessment and Plan: Tested positive for COVID-19 on 08/05/2021 at [facility] after being exposed to coworkers who were positive. * CXR is clear. CTA of the chest shows mild ground-glass opacities of the right lower lobe consistent with pneumonia. * He is maintaining adequate oxygen saturations on room air. Supplemental O2 available as needed with goal saturations 92% or above. * He is not a candidate for COVID-19 specific therapy at this time including dexamethasone or remdesivir as he has no oxygen requirements * Supportive care as needed to include bronchodilators, expectorants, antipyretics. * He has not been vaccinated for COVID-19 * Continue isolation precautions * Trend acute phase reactants (3) Hypertension: Code(s): I10 - Essential (primary) hypertension Status: Inactive Assessment and Plan: Blood pressure has been elevated since presentation, this is likely due to pain. * As discussed above, his home hydrochlorothiazide will be discontinued * Will start amlodipine 5 mg daily * Pain control is imperative. Anticipate blood pressure will improve as pain lessens. * Continue to monitor blood pressure trends and adjust medication regimen as needed (4) Elevated LFTs: Code(s): R79.89 - Other specified abnormal findings of blood chemistry Status: Acute Assessment and Plan: AST is 205 and ALT is 188 on arrival. Alk-phos is within normal limits. May be related to COVID-19 * RUQ ultrasound normal, no cholelithiasis * Avoid acetaminophen * Improving * Monitor LFTs closely (5) Lactic acidosis: Code(s): E87.2 - Acidosis Status: Acute Assessment and Plan: Lactic acid noted to be elevated at 3.5 on presentation and improved to 2.4. This may be related to necrotizing pancreatitis. * Continue with IV fluid hydration and management of pancreatitis as above * Repeat lactic acid today WNL (6) Elevated d-dimer: Code(s): R79.89 - Other specified abnormal findings of blood chemistry Status: Acute Assessment and Plan: D-dimer noted to be 1.75 on presentation. Most likely to be related to COVID-19 *
--- NOTE | 2021-08-10 17:10 | PM.IMPN ---
Progress Note: A&P Assessment and Plan (1) Acute necrotizing pancreatitis: Code(s): K85.91 - Acute pancreatitis with uninfected necrosis, unspecified Status: Acute Assessment and Plan: Presented with diffuse abdominal pain and vomiting. CTA shows acute necrotizing pancreatitis. Lipase was 427 on arrival and is increased to 3285 this morning. NPO except for meds with sips and ice chips Continue with IV fluid rehydration Analgesics as needed. He cannot receive acetaminophen at this time based on his LFTs so his pain medication regimen has been adjusted. He did not have any improvement with IV morphine. He can have ibuprofen for pain 1-3 (monitor renal function closely), oxycodone 2.5 for pain 4-6, and Dilaudid 0.5 IV for pain 7-10. Consult to Gastroenterology. Input is appreciated Etiology for his pancreatitis is unclear. He is on hydrochlorothiazide at home which has been shown to contribute. Will discontinue at this time. Will also proceed with RUQ ultrasound and evaluate triglycerides. He drinks 4-6 beers per week, though he should avoid alcohol in the future to prevent recurrence of pancreatitis. Per GI, because of ileus which appears new NG tube placement will be implemented. Continue to make patient NPO but will allow ice chips. (2) COVID-19: Code(s): U07.1 - COVID-19 Status: Acute Assessment and Plan: Tested positive for COVID-19 on 08/05/2021 at [facility] after being exposed to coworkers who were positive. CXR is clear. CTA of the chest shows mild ground-glass opacities of the right lower lobe consistent with pneumonia. He is maintaining adequate oxygen saturations on room air. Supplemental O2 available as needed with goal saturations 92% or above. He is not a candidate for COVID-19 specific therapy at this time including dexamethasone or remdesivir as he has no oxygen requirements Supportive care as needed to include bronchodilators, expectorants, antipyretics. He has not been vaccinated for COVID-19 Continue isolation precautions Trend acute phase reactants (3) Hypertension: Code(s): I10 - Essential (primary) hypertension Status: Inactive Assessment and Plan: Blood pressure has been elevated since presentation, this is likely due to pain. As discussed above, his home hydrochlorothiazide will be discontinued Will start amlodipine 5 mg daily Pain control is imperative. Anticipate blood pressure will improve as pain lessens. Continue to monitor blood pressure trends and adjust medication regimen as needed (4) Elevated LFTs: Code(s): R79.89 - Other specified abnormal findings of blood chemistry Status: Acute Assessment and Plan: AST is 205 and ALT is 188 on arrival. Alk-phos is within normal limits. May be related to COVID-19 RUQ ultrasound normal, no cholelithiasis Avoid acetaminophen Improving Monitor LFTs closely (5) Lactic acidosis: Code(s): E87.2 - Acidosis Status: Acute Assessment and Plan: Lactic acid noted to be elevated at 3.5 on presentation and improved to 2.4. This may be related to necrotizing pancreatitis. Continue with IV fluid hydration and management of pancreatitis as above Repeat lactic acid today WNL (6) Elevated d-dimer: Code(s): R79.89 - Other specified abnormal findings of blood chemistry Status: Acute Assessment and Plan: D-dimer noted to be 1.75 on presentation. Most likely to be related to COVID-19 CTA negative for pulmonary embolism BLE Venous Doppler negative Subjective Date/time seen: 08/10/21 10:00 Interval history: 26 yo male w/ hx of HTN admitted to the hospital for acute necrotizing pancreatitis. Today he is doing okay but still having epigastric pain. Has obvious distension. No nausea or vomiting. Not having bowel movements. Review of Systems Review of Systems: General: Romana f
[2021-08-10] MEDS: ONDANSETRON INJ 4 MG/2 ML VIAL IV PUSH (18:21)
[2021-08-10 20:00] VITALS: PULSE 133; RESP 20; O2SAT 97
[2021-08-10 21:41] VITALS: BP 157/99; PULSE 114; RESP 20; TEMP 37.8; O2SAT 97
[2021-08-10] MEDS: SODIUM CHLORIDE 0.9% IV 1,000 ML 100 ML IV CONT (23:27)
[2021-08-10 23:54] VITALS: BP 149/109; PULSE 145; RESP 20; TEMP 38.3; O2SAT 98
[2021-08-11 00:27] VITALS: O2SAT 98
[2021-08-11 03:54] VITALS: BP 158/106; PULSE 133; RESP 20; TEMP 37.9; O2SAT 97
[2021-08-11] MEDS: HYDROmorphone HCL INJ (*CRX) 1 MG/ML SYR 0.5 MG IV PUSH (05:33)
[2021-08-11 07:12] LABS: Basophils Percent Auto 0.3 % (0.2-1.2); Eosinophils Absolute Auto 0.1 K/mm3 (0-0.3); Hematocrit 37.1 % (42.0-52.0); Hemoglobin 12.2 g/dL (14.0-18.0); Immature Granulocyte Absolute 0.21 K/mm3 (0.00-0.031); Immature Granulocyte Percent A 1.9 % (0-0.5); Lymphocytes Absolute Auto 0.85 K/mm3 (0.9-3.2); Lymphocytes Percent Auto 7.9 % (18.3-44.2); Mean Corpuscular HGB Conc 32.9 g/dl (32-36); Mean Corpuscular Hemoglobin 27.9 pg (26-34); Mean Corpuscular Volume 84.9 fl (80-100); Mean Platelet Volume 9.1 fl (7.4-10.4); Monocytes Absolute Auto 2.1 K/mm3 (0.1-0.6); Monocytes Percent Auto 19.7 % (2.6-8.5); Neutrophils Absolute Auto 7.5 K/mm3 (1.3-6.7); Neutrophils Percent Auto 69.2 % (45.5-73.1); Platelet Count Result 199 k/mm3 (150-375); Red Blood Count 4.37 M/mm3 (4.6-6.20); Red Cell Distribution Width 15.4 % (11.5-14.5); White Blood Count 10.8 K/mm3 (4.5-10.0)
[2021-08-11 07:18] LABS: Alanine Aminotransferase 62 U/L (4-50); Albumin Level 3.1 g/dL (3.5-5.1); Alkaline Phosphatase 81 U/L (38-126); Anion Gap 9 mmol/L (8-16); Aspartate Amino Transferase 45 U/L (17-59); Bilirubin,Total 1.6 mg/dL (0.2-1.3); Blood Urea Nitrogen 8 mg/dL (9-20); Calcium 8.2 mg/dL (8.4-10.2); Carbon Dioxide 28 mmol/L (22-30); Chloride 97 mmol/L (98-107); Estimated CRCL calculation 90 ml/min; Estimated Glomerular Filt Rate > 60; Glucose 100 mg/dL (65-110); Lipase 1655 U/L (23-300); Potassium 3.4 mmol/L (3.4-5.0); Sodium 134 mmol/L (137-145)
[2021-08-11 08:00] VITALS: BP 168/109; PULSE 117; RESP 18; TEMP 36.3; O2SAT 100; O2SAT 94
[2021-08-11] MEDS: ENOXAPARIN 40 MG/0.4 ML SYRINGE SUB-Q (09:21)
[2021-08-11] MEDS: amLODIPine BESYLATE 5 MG TABLET PO (09:21)
--- NOTE | 2021-08-11 10:41 | WPDGIPROGNO ---
Progress Note: A&P Assessment and Plan (1) Ileus: Code(s): K56.7 - Ileus, unspecified Status: Acute Assessment and Plan: Patient appears to have an ileus on the basis of his pancreatitis. Currently he refuses NG tube. Will try Dulcolax suppositories. Continue NPO status but allow ice chips. Continue monitor lipase, LFTs. Pancreatitis appears to be idiopathic at this point. Although he does have some alcohol use which could contribute. Alcohol should be avoided in the future. (2) Acute necrotizing pancreatitis: Code(s): K85.91 - Acute pancreatitis with uninfected necrosis, unspecified Status: Acute Assessment and Plan: Patient with necrotizing features in the tail of his pancreas suggest this is more involved than his last episode of pancreatitis. Continue NPO and supportive care at this point. Pain control. Continue monitor labs. (3) COVID-19: Code(s): U07.1 - COVID-19 Status: Acute Assessment and Plan: Patient COVID positive. Respiratory status appears stable at present. Subjective Date/time seen: 08/11/21 10:41 Patient continues to complain of abdominal bloating. He did pass some gas last night. No recent bowel movements. Refused NG tube placement. Review of Systems Review of Systems: All systems reviewed & are unremarkable except as noted in HPI and below Exam Narrative: Physical exam reveals patient be comfortable at rest. HEENT exam reveals no icterus. Lungs are clear. Heart without murmur. Abdomen bowel sounds are present soft significant voluntary guarding diffusely. Bowel sounds are scant. No organomegaly evident. Objective Data Vital Signs Vital Signs: Vital Signs - 24 hr 08/10/21 14:23 08/10/21 20:00 08/10/21 21:41 Temperature 99.1 F 100.0 F H Pulse Rate 115 H 133 H 114 H Respiratory Rate 20 20 20 Blood Pressure 153/113 H 157/99 H Pulse Oximetry 97 97 97 08/10/21 23:54 08/11/21 00:27 08/11/21 03:54 Temperature 101.0 F H 100.3 F H Pulse Rate 145 H 133 H Respiratory Rate 20 20 Blood Pressure 149/109 H 158/106 H Pulse Oximetry 98 98 97 08/11/21 08:00 Temperature 97.4 F L Pulse Rate 117 H Respiratory Rate 18 Blood Pressure 168/109 H Pulse Oximetry 94 Intake/Output Intake/Output: Intake & Output 08/08/21 08/09/21 08/10/21 08/11/21 23:59 23:59 23:59 23:59 Intake Total 3100 3320 100 Balance 3100 3320 100 Meds/Results Medications: Active Medications Generic Name Dose Route Start Last Admin Trade Name Freq PRN Reason Stop Dose Admin Amlodipine Besylate 5 mg 08/09/21 10:15 08/11/21 09:21 Amlodipine Besylate 5 Mg Tablet PO 5 mg QAM GEOFFREY Administration Enoxaparin Sodium 40 mg 08/10/21 09:00 08/11/21 09:21 Enoxaparin 40 Mg/0.4 Ml Syringe SUB-Q 40 mg DAILY GEOFFREY Administration Hydromorphone HCl 0.5 mg 08/09/21 10:04 08/11/21 05:33 Hydromorphone Hcl Inj (*Crx) 1 Mg/Ml Syr IV PUSH 0.5 mg Q4H PRN Administration Pain Rated 7-10 Sodium Chloride 1,000 mls @ 100 mls/hr 08/09/21 02:40 08/10/21 23:27 Normal Saline Iv IV CONT 100 mls/hr .Q10H GEOFFREY Administration Ibuprofen 600 mg 08/09/21 10:05 08/09/21 14:40 Ibuprofen 600 Mg Tablet PO 600 mg Q6H PRN Administration Pain 1-3 Ondansetron HCl 4 mg 08/09/21 02:36 08/10/21 18:21 Ondansetron Inj 4 Mg/2 Ml Vial IV PUSH 4 mg Q4H PRN Administration Nausea Oxycodone HCl 2.5 mg 08/09/21 10:15 08/09/21 17:02 Oxycodone Hcl (*Crx) 2.5 Mg Tab Ir PO 2.5 mg Q4H PRN Administration Pain Rated 4-6 Radiology Results: ITS Impressions Chest X-Ray 08/09/21 08:42 IMPRESSION: 1. No acute cardiopulmonary disease. Chest/Abdomen/Pelvis CTA 08/09/21 08:43 IMPRESSION: 1. Acute necrotizing pancreatitis. 2. Mild groundglass opacities in right lung lower lobe, consistent with pneumonia. Venous Doppler Study 08/09/21 12:09 IMPRESSION: 1. No deep venous thrombosis in
[2021-08-11] MEDS: SODIUM CHLORIDE 0.9% IV 1,000 ML 100 ML IV CONT ×2 (10:53→21:13)
[2021-08-11 12:05] VITALS: BP 144/96; PULSE 110; RESP 20; TEMP 36.6; O2SAT 96
--- NOTE | 2021-08-11 14:45 | P.PNIM_ITS ---
Progress Note: A&P Assessment and Plan (1) Acute necrotizing pancreatitis: Code(s): K85.91 - Acute pancreatitis with uninfected necrosis, unspecified Status: Acute Assessment and Plan: Presented with diffuse abdominal pain and vomiting. CTA shows acute necrotizing pancreatitis. Lipase was 427 on arrival, was up to 3285 at one point, but is trending back down today at 1655. * NPO except for meds with sips and ice chips * Continue with IV fluid rehydration * Analgesics as needed. Ibuprofen for pain 1-3 (monitor renal function closely - avoiding tylenol if possible due to elevated LFTs on arrival however these have normalized), oxycodone 2.5 for pain 4-6, and Dilaudid 0.5 IV for pain 7- 10. * Consult to Gastroenterology. Input is appreciated * Etiology for his pancreatitis is unclear. He is on hydrochlorothiazide at home which has been shown to contribute. Will discontinue at this time. RUQ ultrasound negative. He drinks 4-6 beers per week, though he should avoid alcohol in the future to prevent recurrence of pancreatitis. * Per GI, because of ileus which appears new NG tube placement will be implemented. Continue to make patient NPO but will allow ice chips. * Per GI pt currently refusing NG tube, continue supportive care for now. Also trying Dulcolax suppositories. (2) COVID-19: Code(s): U07.1 - COVID-19 Status: Acute Assessment and Plan: Tested positive for COVID-19 on 08/05/2021 at [facility] after being exposed to coworkers who were positive. * CXR is clear. CTA of the chest shows mild ground-glass opacities of the right lower lobe consistent with pneumonia. * He is maintaining adequate oxygen saturations on room air. Supplemental O2 available as needed with goal saturations 92% or above. * He is not a candidate for COVID-19 specific therapy at this time including dexamethasone or remdesivir as he has no oxygen requirements * Supportive care as needed to include bronchodilators, expectorants, antipyretics. * He has not been vaccinated for COVID-19 * Continue isolation precautions * Trend acute phase reactants (3) Hypertension: Code(s): I10 - Essential (primary) hypertension Status: Inactive Assessment and Plan: Blood pressure has been elevated since presentation, this is likely due to pain. * As discussed above, his home hydrochlorothiazide will be discontinued * Will start amlodipine 5 mg daily * Pain control is imperative. Anticipate blood pressure will improve as pain lessens. * Continue to monitor blood pressure trends and adjust medication regimen as needed (4) Elevated LFTs: Code(s): R79.89 - Other specified abnormal findings of blood chemistry Status: Acute Assessment and Plan: AST is 205 and ALT is 188 on arrival. Alk-phos is within normal limits. May be related to COVID-19 * RUQ ultrasound normal, no cholelithiasis * Improving, AST 45, ALT 62, and Alk phos 81. * Will give reserve Tylenol for fever only and continue to monitor LFTs closely (5) Lactic acidosis: Code(s): E87.2 - Acidosis Status: Acute Assessment and Plan: Lactic acid noted to be elevated at 3.5 on presentation and improved to 2.4. This may be related to necrotizing pancreatitis. * Continue with IV fluid hydration and management of pancreatitis as above * Repeat lactic acid WNL (6) Elevated d-dimer: Code(s): R79.89 - Other specified abnormal findings of blood chemistry Status: Acute Assessment and Plan:
--- NOTE | 2021-08-11 14:45 | PM.IMPN ---
Progress Note: A&P Assessment and Plan (1) Acute necrotizing pancreatitis: Code(s): K85.91 - Acute pancreatitis with uninfected necrosis, unspecified Status: Acute Assessment and Plan: Presented with diffuse abdominal pain and vomiting. CTA shows acute necrotizing pancreatitis. Lipase was 427 on arrival, was up to 3285 at one point, but is trending back down today at 1655. NPO except for meds with sips and ice chips Continue with IV fluid rehydration Analgesics as needed. Ibuprofen for pain 1-3 (monitor renal function closely - avoiding tylenol if possible due to elevated LFTs on arrival however these have normalized), oxycodone 2.5 for pain 4-6, and Dilaudid 0.5 IV for pain 7-10. Consult to Gastroenterology. Input is appreciated Etiology for his pancreatitis is unclear. He is on hydrochlorothiazide at home which has been shown to contribute. Will discontinue at this time. RUQ ultrasound negative. He drinks 4-6 beers per week, though he should avoid alcohol in the future to prevent recurrence of pancreatitis. Per GI, because of ileus which appears new NG tube placement will be implemented. Continue to make patient NPO but will allow ice chips. Per GI pt currently refusing NG tube, continue supportive care for now. Also trying Dulcolax suppositories. (2) COVID-19: Code(s): U07.1 - COVID-19 Status: Acute Assessment and Plan: Tested positive for COVID-19 on 08/05/2021 at [facility] after being exposed to coworkers who were positive. CXR is clear. CTA of the chest shows mild ground-glass opacities of the right lower lobe consistent with pneumonia. He is maintaining adequate oxygen saturations on room air. Supplemental O2 available as needed with goal saturations 92% or above. He is not a candidate for COVID-19 specific therapy at this time including dexamethasone or remdesivir as he has no oxygen requirements Supportive care as needed to include bronchodilators, expectorants, antipyretics. He has not been vaccinated for COVID-19 Continue isolation precautions Trend acute phase reactants (3) Hypertension: Code(s): I10 - Essential (primary) hypertension Status: Inactive Assessment and Plan: Blood pressure has been elevated since presentation, this is likely due to pain. As discussed above, his home hydrochlorothiazide will be discontinued Will start amlodipine 5 mg daily Pain control is imperative. Anticipate blood pressure will improve as pain lessens. Continue to monitor blood pressure trends and adjust medication regimen as needed (4) Elevated LFTs: Code(s): R79.89 - Other specified abnormal findings of blood chemistry Status: Acute Assessment and Plan: AST is 205 and ALT is 188 on arrival. Alk-phos is within normal limits. May be related to COVID-19 RUQ ultrasound normal, no cholelithiasis Improving, AST 45, ALT 62, and Alk phos 81. Will give reserve Tylenol for fever only and continue to monitor LFTs closely (5) Lactic acidosis: Code(s): E87.2 - Acidosis Status: Acute Assessment and Plan: Lactic acid noted to be elevated at 3.5 on presentation and improved to 2.4. This may be related to necrotizing pancreatitis. Continue with IV fluid hydration and management of pancreatitis as above Repeat lactic acid WNL (6) Elevated d-dimer: Code(s): R79.89 - Other specified abnormal findings of blood chemistry Status: Acute Assessment and Plan: D-dimer noted to be 1.75 on presentation. Most likely to be related to COVID-19 CTA negative for pulmonary embolism BLE Venous Doppler negative (7) Insomnia: Code(s): G47.00 - Insomnia, unspecified Status: Acute Assessment and Plan: Pt states unable to sleep while here. Takes benadryl at home for insomnia. Will order this along with melatonin. Subjective Date/time seen:
[2021-08-11 16:00] VITALS: BP 139/99; PULSE 117; RESP 20; TEMP 36.6; O2SAT 98
[2021-08-11] MEDS: oxyCODONE HCL (*CRX) 2.5 MG TAB IR PO ×2 (16:37→21:12)
[2021-08-11] MEDS: BISACODYL 10 MG SUPPOSITORY RECTAL (19:00)
[2021-08-11 20:00] VITALS: BP 149/79; PULSE 117; PULSE 129; RESP 18; TEMP 37.7; O2SAT 95; O2SAT 98
[2021-08-11] MEDS: MELATONIN 5 MG TABLET PO (21:12)
[2021-08-12] VITALS (7 sets, daily range): BP systolic 140–155; BP diastolic 86–106; PULSE 109–117; RESP 14–20; TEMP 36.6–37.2; O2SAT 95–100
[2021-08-12] MEDS: oxyCODONE HCL (*CRX) 2.5 MG TAB IR PO ×4 (01:03→20:51)
[2021-08-12 07:24] LABS: Alanine Aminotransferase 50 U/L (4-50); Albumin Level 3.1 g/dL (3.5-5.1); Alkaline Phosphatase 83 U/L (38-126); Anion Gap 10 mmol/L (8-16); Aspartate Amino Transferase 42 U/L (17-59); Bilirubin,Total 1.1 mg/dL (0.2-1.3); Blood Urea Nitrogen 7 mg/dL (9-20); Calcium 8.4 mg/dL (8.4-10.2); Carbon Dioxide 26 mmol/L (22-30); Chloride 99 mmol/L (98-107); Estimated CRCL calculation 98 ml/min; Estimated Glomerular Filt Rate > 60; Glucose 88 mg/dL (65-110); Lipase 1087 U/L (23-300); Potassium 3.2 mmol/L (3.4-5.0); Sodium 135 mmol/L (137-145)
[2021-08-12 07:27] LABS: Hemoglobin 11.7 g/dL (14.0-18.0); Mean Corpuscular HGB Conc 32.5 g/dl (32-36); Mean Corpuscular Hemoglobin 28.5 pg (26-34); Mean Corpuscular Volume 87.8 fl (80-100); Platelet Count Result 253 k/mm3 (150-375); Red Cell Distribution Width 15.4 % (11.5-14.5); White Blood Count 11.7 K/mm3 (4.5-10.0)
[2021-08-12] MEDS: SODIUM CHLORIDE 0.9% IV 1,000 ML 100 ML IV CONT ×2 (07:56→21:30)
--- NOTE | 2021-08-12 08:23 | WPDGIPROGNO ---
Progress Note: A&P Assessment and Plan (1) Acute necrotizing pancreatitis: Code(s): K85.91 - Acute pancreatitis with uninfected necrosis, unspecified Status: Acute Assessment and Plan: Patient with acute necrotizing pancreatitis. Lipase remains 1087. symptoms have begun to improve. Will start to allow liquid diet sporadically. Continue conservative management. Monitor labs closely. (2) Ileus: Code(s): K56.7 - Ileus, unspecified Status: Acute Assessment and Plan: Ileus appears to be resolving. We may be able to implement liquid diet sparingly today. (3) COVID-19: Code(s): U07.1 - COVID-19 Status: Acute Assessment and Plan: Patient known to have COVID infection. Currently respiratory status appears stable. Subjective Date/time seen: 08/12/21 08:23 Patient reports abdominal pain has lessened. He did have a bowel movement yesterday. States he is passing flatus. Becoming very hungry. Review of Systems Review of Systems: All systems reviewed & are unremarkable except as noted in HPI and below Exam Narrative: On physical exam vital signs are stable. HEENT exam unremarkable. Lungs are clear to auscultation and percussion. Heart is without murmur or extra sounds. Abdominal exam bowel sounds are present But diminished, soft minimal tenderness at this time. with no organomegaly. Objective Data Vital Signs Vital Signs: Vital Signs - 24 hr 08/11/21 12:05 08/11/21 16:00 08/11/21 20:00 Temperature 97.8 F 97.8 F 99.9 F H Pulse Rate 110 H 117 H 117 H Respiratory Rate 20 20 18 Blood Pressure 144/96 H 139/99 H 149/79 H Pulse Oximetry 96 98 95 08/12/21 00:00 08/12/21 04:00 Temperature 98.8 F 98.5 F Pulse Rate 117 H 117 H Respiratory Rate 18 18 Blood Pressure 152/86 H 147/91 H Pulse Oximetry 95 96 Intake/Output Intake/Output: Intake & Output 08/09/21 08/10/21 08/11/21 08/12/21 23:59 23:59 23:59 23:59 Intake Total 3100 3320 2100 1110 Balance 3100 3320 2100 1110 Meds/Results Medications: Active Medications Generic Name Dose Route Start Last Admin Trade Name Freq PRN Reason Stop Dose Admin Amlodipine Besylate 5 mg 08/09/21 10:15 08/11/21 09:21 Amlodipine Besylate 5 Mg Tablet PO 5 mg QAM GEOFFREY Administration Diphenhydramine HCl 50 mg 08/11/21 14:56 Diphenhydramine Hcl Cap 25 Mg Capsule PO HS PRN insomnia Enoxaparin Sodium 40 mg 08/10/21 09:00 08/11/21 09:21 Enoxaparin 40 Mg/0.4 Ml Syringe SUB-Q 40 mg DAILY GEOFFREY Administration Sodium Chloride 1,000 mls @ 100 mls/hr 08/09/21 02:40 08/12/21 07:56 Normal Saline Iv IV CONT 100 mls/hr .Q10H GEOFFREY Administration Ibuprofen 600 mg 08/09/21 10:05 08/09/21 14:40 Ibuprofen 600 Mg Tablet PO 600 mg Q6H PRN Administration Pain 1-3 Melatonin 5 mg 08/11/21 21:00 08/11/21 21:12 Melatonin 5 Mg Tablet PO 5 mg HS GEOFFREY Administration Morphine Sulfate 2 mg 08/11/21 16:26 Morphine Sulfate (*Crx) 2 Mg/Ml Inj IV PUSH Q4H PRN Pain Rated 7-10 Ondansetron HCl 4 mg 08/09/21 02:36 08/10/21 18:21 Ondansetron Inj 4 Mg/2 Ml Vial IV PUSH 4 mg Q4H PRN Administration Nausea Oxycodone HCl 2.5 mg 08/09/21 10:15 08/12/21 01:03 Oxycodone Hcl (*Crx) 2.5 Mg Tab Ir PO 2.5 mg Q4H PRN Administration Pain Rated 4-6 Radiology Results: ITS Impressions Chest X-Ray 08/09/21 08:42 IMPRESSION: 1. No acute cardiopulmonary disease. Chest/Abdomen/Pelvis CTA 08/09/21 08:43 IMPRESSION: 1. Acute necrotizing pancreatitis. 2. Mild groundglass opacities in right lung lower lobe, consistent with pneumonia. Venous Doppler Study 08/09/21 12:09 IMPRESSION: 1. No deep venous thrombosis in either lower limb. Abdomen Ultrasound 08/09/21 13:03 IMPRESSION: 1. Normal right upper quadrant ultrasound. The region of necrotic pancreatitis seen at the tail of the pancreas on prior CT is not clear
[2021-08-12] MEDS: ENOXAPARIN 40 MG/0.4 ML SYRINGE SUB-Q (09:19)
[2021-08-12] MEDS: amLODIPine BESYLATE 5 MG TABLET PO (09:19)
[2021-08-12 10:57] LABS: Band Neutrophils Percent 10 % (0-6); Eosinophils Absolute Manual 0.11 K/mm3 (0.02-0.5); Eosinophils Percent Manual 1 % (0-4); Lymphocytes Absolute Manual 1.52 K/mm3 (1.1-4.5); Monocytes Absolute Manual 1.63 K/mm3 (0.1-0.90); Monocytes Percent Manual 14 % (3-9); Neutrophils Absolute Manual 8.42 K/mm3 (1.3-6.7); Neutrophils Percent Manual 62 % (46-73); Total Cells Counted 100
[2021-08-12 10:58] LABS: Hypochromasia 1+ (NORMAL); Platelet Estimate Adequate (Adequate); Stomatocytes 1+ (NORMAL)
--- NOTE | 2021-08-12 16:59 | PM.IMPN ---
Progress Note: A&P Assessment and Plan (1) Acute necrotizing pancreatitis: Code(s): K85.91 - Acute pancreatitis with uninfected necrosis, unspecified Status: Acute Assessment and Plan: Pt is having mild abdominal discomfort otherwise is good. CTA shows acute necrotizing pancreatitis. Lipase is 1087. (2) COVID-19: Code(s): U07.1 - COVID-19 Status: Acute Assessment and Plan: Tested positive for COVID-19 on 08/05/2021 at [facility] after being exposed to coworkers who were positive. CXR is clear. CTA of the chest shows mild ground-glass opacities of the right lower lobe consistent with pneumonia. Pt is doing well on room air (3) Hypertension: Code(s): I10 - Essential (primary) hypertension Status: Inactive Assessment and Plan: Bp is 140/88 (4) Elevated LFTs: Code(s): R79.89 - Other specified abnormal findings of blood chemistry Status: Acute Assessment and Plan: RUQ ultrasound normal, no cholelithiasis Improving, AST is 42, ALT is 50 (5) Lactic acidosis: Code(s): E87.2 - Acidosis Status: Resolved Assessment and Plan: Lactic acid is 0.8 now. This may be related to necrotizing pancreatitis. (6) Elevated d-dimer: Code(s): R79.89 - Other specified abnormal findings of blood chemistry Status: Acute Assessment and Plan: D-dimer noted to be 1.75 on presentation. CTA negative for pulmonary embolism BLE Venous Doppler negative (7) Insomnia: Code(s): G47.00 - Insomnia, unspecified Status: Acute Assessment and Plan: Sleeping good on melatonin Subjective Date/time seen: 08/12/21 16:59 Interval history: 26 yo male w/ hx of HTN admitted to the hospital for acute necrotizing pancreatitis. Pt found to have COVID on 08/05. Pt started on clear liquid diet today, having some abdominal discomfort. Pt is breathing 97% on RA. Review of Systems Review of Systems: All systems reviewed & are unremarkable except as noted in HPI and below Exam Const: General: cooperative and healthy appearing; No in distress Nutritional Appearance: overweight Orientation/consciousness: oriented to person HENMT: Head: normal to inspection Resp: Effort & Inspection: no respiratory distress Auscultation: no rhonchi and no wheezes Cardio: Rate: regular rate Rhythm: regular rhythm GI: Inspection: normal to inspection GI Palp: No abdominal tenderness, No Guarding due to palpation present (GI) and No Hepatomegaly present Auscultation: normal bowel sounds Neuro: General: oriented to person Objective Data Vital Signs Vital Signs: Vital Signs - 24 hr 08/11/21 20:00 08/12/21 00:00 08/12/21 04:00 Temperature 37.7 C H 37.1 C 36.9 C Pulse Rate 117 H 117 H 117 H Respiratory Rate 18 18 18 Blood Pressure 149/79 H 152/86 H 147/91 H Pulse Oximetry 95 95 96 08/12/21 08:00 08/12/21 12:00 08/12/21 15:57 Temperature 36.7 C 36.7 C 36.6 C Pulse Rate 114 H 109 H 115 H Respiratory Rate 16 14 16 Blood Pressure 155/99 H 147/97 H 140/88 Pulse Oximetry 97 98 97 Intake/Output Intake/Output: Intake & Output 08/09/21 08/10/21 08/11/21 08/12/21 23:59 23:59 23:59 23:59 Intake Total 3100 3320 2100 1397 Balance 3100 3320 2100 1397 Meds/Results Medications: Active Medications Generic Name Dose Route Start Last Admin Trade Name Freq PRN Reason Stop Dose Admin Amlodipine Besylate 5 mg 08/09/21 10:15 08/12/21 09:19 Amlodipine Besylate 5 Mg Tablet PO 5 mg QAM GEOFFREY Administration Diphenhydramine HCl 50 mg 08/11/21 14:56 Diphenhydramine Hcl Cap 25 Mg Capsule PO HS PRN insomnia Enoxaparin Sodium 40 mg 08/10/21 09:00 08/12/21 09:19 Enoxaparin 40 Mg/0.4 Ml Syringe SUB-Q 40 mg DAILY GEOFFREY Administration Sodium Chloride 1,000 mls @ 100 mls/hr 08/09/21 02:40 08/12/21 07:56 Normal Saline Iv IV CON
[2021-08-12] MEDS: MELATONIN 5 MG TABLET PO (20:53)
[2021-08-13] VITALS: BP 153/91; PULSE 108; RESP 22; TEMP 37.1; O2SAT 98
[2021-08-13] MEDS: oxyCODONE HCL (*CRX) 2.5 MG TAB IR PO (01:20)
[2021-08-13 04:00] VITALS: BP 142/88; PULSE 94; RESP 20; TEMP 36.8; O2SAT 95
[2021-08-13 06:37] LABS: Anion Gap 7 mmol/L (8-16); Blood Urea Nitrogen 5 mg/dL (9-20); Calcium 8.4 mg/dL (8.4-10.2); Carbon Dioxide 29 mmol/L (22-30); Chloride 100 mmol/L (98-107); Estimated CRCL calculation 108 ml/min; Estimated Glomerular Filt Rate > 60; Glucose 114 mg/dL (65-110); Lipase 1525 U/L (23-300); Potassium 3.2 mmol/L (3.4-5.0); Sodium 136 mmol/L (137-145)
[2021-08-13 08:10] VITALS: BP 150/89; PULSE 96; RESP 16; TEMP 37.2; O2SAT 99
[2021-08-13] MEDS: amLODIPine BESYLATE 5 MG TABLET PO (08:39)
[2021-08-13] MEDS: POTASSIUM CHLORIDE 20 MEQ PACKET (FOR LIQUID) 40 MEQ PO (08:39)
[2021-08-13] MEDS: SODIUM CHLORIDE 0.9% IV 1,000 ML 100 ML IV CONT ×2 (08:39→19:30)
[2021-08-13] MEDS: ENOXAPARIN 40 MG/0.4 ML SYRINGE SUB-Q (08:40)
[2021-08-13] MEDS: MORPHINE SULFATE (*CRX) 2 MG/ML INJ IV PUSH (08:48)
[2021-08-13] MEDS: IBUPROFEN 600 MG TABLET PO (10:05)
--- NOTE | 2021-08-13 10:23 | WPDGIPROGNO ---
Progress Note: A&P Assessment and Plan (1) Acute necrotizing pancreatitis: Code(s): K85.91 - Acute pancreatitis with uninfected necrosis, unspecified Status: Acute Assessment and Plan: Patient with acute necrotizing pancreatitis. Not yet resolved. He did not tolerate liquid diet as we hoped. Plan to limit dietary intake but allow ice chips and some liquids if tolerated. He still has a mild ileus from the pancreatitis. Continue supportive care advised. If pain and symptoms persist follow-up CT scan early next week is advised. (2) COVID-19: Code(s): U07.1 - COVID-19 Status: Acute Assessment and Plan: Patient found to be COVID positive but is not short of breath at present. This is followed by primary care service. Subjective Date/time seen: 08/13/21 10:23 Patient reports recurrent pain after starting liquid diet yesterday. Had elevation of lipase. States he occasionally passes flatus. Notes modest diffuse abdominal discomfort. Review of Systems Review of Systems: All systems reviewed & are unremarkable except as noted in HPI and below Exam Narrative: Physical exam reveals patient be alert vital signs are stable. He is afebrile. HEENT exam reveals no icterus. Lungs are clear. Heart without murmur. Abdomen soft flat mild tympany. No masses appreciated. Mild diffuse tenderness evident. Rectal exam deferred at this time. Objective Data Vital Signs Vital Signs: Vital Signs - 24 hr 08/12/21 12:00 08/12/21 15:57 08/12/21 20:00 Temperature 98.0 F 97.8 F 98.9 F Pulse Rate 109 H 115 H 114 H Respiratory Rate 14 16 20 Blood Pressure 147/97 H 140/88 152/106 H Pulse Oximetry 98 97 100 08/12/21 20:50 08/13/21 00:00 08/13/21 04:00 Temperature 98.7 F 98.2 F Pulse Rate 114 H 108 H 94 Respiratory Rate 20 22 H 20 Blood Pressure 153/91 H 142/88 H Pulse Oximetry 100 98 95 08/13/21 08:10 Temperature 99.0 F Pulse Rate 96 Respiratory Rate 16 Blood Pressure 150/89 H Pulse Oximetry 99 Intake/Output Intake/Output: Intake & Output 08/10/21 08/11/21 08/12/21 08/13/21 23:59 23:59 23:59 23:59 Intake Total 3320 2100 2497 1790 Balance 3320 2100 2497 1790 Meds/Results Medications: Active Medications Generic Name Dose Route Start Last Admin Trade Name Freq PRN Reason Stop Dose Admin Amlodipine Besylate 5 mg 08/09/21 10:15 08/13/21 08:39 Amlodipine Besylate 5 Mg Tablet PO 5 mg QAM GEOFFREY Administration Diphenhydramine HCl 50 mg 08/11/21 14:56 Diphenhydramine Hcl Cap 25 Mg Capsule PO HS PRN insomnia Enoxaparin Sodium 40 mg 08/10/21 09:00 08/13/21 08:40 Enoxaparin 40 Mg/0.4 Ml Syringe SUB-Q 40 mg DAILY GEOFFREY Administration Hydromorphone HCl 1 mg 08/13/21 10:16 Hydromorphone Hcl Inj (*Crx) 1 Mg/Ml Syr IV PUSH Q4H PRN pain Sodium Chloride 1,000 mls @ 100 mls/hr 08/09/21 02:40 08/13/21 08:39 Normal Saline Iv IV CONT 100 mls/hr .Q10H GEOFFREY Administration Ibuprofen 600 mg 08/09/21 10:05 08/13/21 10:05 Ibuprofen 600 Mg Tablet PO 600 mg Q6H PRN Administration Pain 1-3 Melatonin 5 mg 08/11/21 21:00 08/12/21 20:53 Melatonin 5 Mg Tablet PO 5 mg HS GEOFFREY Administration Ondansetron HCl 4 mg 08/09/21 02:36 08/10/21 18:21 Ondansetron Inj 4 Mg/2 Ml Vial IV PUSH 4 mg Q4H PRN Administration Nausea Oxycodone HCl 2.5 mg 08/09/21 10:15 08/13/21 01:20 Oxycodone Hcl (*Crx) 2.5 Mg Tab Ir PO 2.5 mg Q4H PRN Administration Pain Rated 4-6 Potassium Chloride 40 meq 08/13/21 09:00 08/13/21 08:39 Potassium Chloride 20 Meq Packet (For Liquid) PO 40 meq DAILY GEOFFREY Administration Radiology Results: ITS Impressions Chest X-Ray 08/09/21 08:42 IMPRESSION: 1. No acute cardiopulmonary disease. Chest/Abdomen/Pelvis CTA 08/09/21 08:43 IMPRESSION: 1. Acute necrotizing pancreatitis. 2. Mild groundglass opacities in right lung lower lobe, consistent with
[2021-08-13 12:52] VITALS: BP 144/91; PULSE 98; RESP 14; TEMP 37.4; O2SAT 98
--- NOTE | 2021-08-13 14:51 | PM.IMPN ---
Progress Note: A&P Assessment and Plan (1) Acute necrotizing pancreatitis: Code(s): K85.91 - Acute pancreatitis with uninfected necrosis, unspecified Status: Acute Assessment and Plan: Pt is having mild abdominal discomfort otherwise is good. CTA shows acute necrotizing pancreatitis. Lipase is 1087. -CTA w/ acute necrotizing pancreatitis -Etiology for his pancreatitis is unclear. He is on hydrochlorothiazide at home which has been shown to contribute. Will discontinue at this time. RUQ ultrasound negative. He drinks 4-6 beers per week, though he should avoid alcohol in the future to prevent recurrence of pancreatitis. -Consult to Gastroenterology. Input is appreciated -Lipase 1067, patient not tolerating clears as hoped. Will scale back to NPO w/ ice chips as tolerated. -Still has mild ileus from pancreatitis. Per GI if symptoms persist follow up CT early next week is advised. (2) COVID-19: Code(s): U07.1 - COVID-19 Status: Acute Assessment and Plan: Tested positive for COVID-19 on 08/05/2021 at [facility] after being exposed to coworkers who were positive. CXR is clear. CTA of the chest shows mild ground-glass opacities of the right lower lobe consistent with pneumonia. Pt is doing well on room air (3) Hypertension: Code(s): I10 - Essential (primary) hypertension Status: Inactive Assessment and Plan: -Blood pressure has been elevated since presentation, this is likely due to pain. -As discussed above, his home hydrochlorothiazide will be discontinued -Started amlodipine 5 mg daily -Pain control is imperative. Anticipate blood pressure will improve as pain lessens. -Continue to monitor blood pressure trends and adjust medication regimen as needed -Today 142/88 (4) Elevated LFTs: Code(s): R79.89 - Other specified abnormal findings of blood chemistry Status: Acute Assessment and Plan: RUQ ultrasound normal, no cholelithiasis Improving, AST is 42, ALT is 50 (5) Lactic acidosis: Code(s): E87.2 - Acidosis Status: Resolved Assessment and Plan: Lactic acid is 0.8 now. This may be related to necrotizing pancreatitis. (6) Elevated d-dimer: Code(s): R79.89 - Other specified abnormal findings of blood chemistry Status: Acute Assessment and Plan: D-dimer noted to be 1.75 on presentation. CTA negative for pulmonary embolism BLE Venous Doppler negative (7) Insomnia: Code(s): G47.00 - Insomnia, unspecified Status: Acute Assessment and Plan: Sleeping good on melatonin Subjective Date/time seen: 08/13/21 14:51 Interval history: 26 yo male w/ hx of HTN admitted to the hospital for acute necrotizing pancreatitis. Pt found to have COVID on 08/05. Pt started on clear liquid diet yesterday but did not tolerate it. He is complaining of increased diffuse abdominal pain. Abdomen noted to be distended. No nausea or vomiting. Still having intermittent cough. No sob. Review of Systems Review of Systems: General: Denies fevers, chills Eyes: Denies vision changes or eye pain ENT: Denies nasal congestion or sore throat Respiratory: + cough, denies shortness of breath Cardiovascular: Denies chest pain, palpitations, or lower extremity edema Gastrointestinal: + abdominal pain, no vomiting Genitourinary: Denies dysuria or urinary frequency Musculoskeletal: Denies back pain or muscle aches Neurological: Denies headache, paraesthesias, or motor weakness Integumentary: Denies rash or other skin lesions Exam Narrative: General: No acute distress, non toxic appearing Eyes: PERRL, no scleral icterus, EOMI HEENT: NCAT, external ears normal, MMM Respiratory: No respiratory distress, Lungs CTA bilaterally, no wheezing Cardiovascular: RRR, no murmur Abdominal: moderate distension, moderate diffuse ttp, bowel sounds absen
[2021-08-13 15:55] VITALS: BP 147/87; PULSE 97; RESP 14; TEMP 37.3; O2SAT 98
[2021-08-13] MEDS: HYDROmorphone HCL INJ (*CRX) 1 MG/ML SYR IV PUSH ×2 (16:37→20:29)
[2021-08-13 20:00] VITALS: BP 142/98; PULSE 98; RESP 22; TEMP 36.3; O2SAT 100
[2021-08-13] MEDS: MELATONIN 5 MG TABLET PO (20:29)
[2021-08-14] VITALS: BP 147/97; PULSE 97; RESP 20; TEMP 36.5; O2SAT 99
[2021-08-14] MEDS: HYDROmorphone HCL INJ (*CRX) 1 MG/ML SYR IV PUSH ×8 (00:06→23:01)
[2021-08-14] MEDS: SODIUM CHLORIDE 0.9% IV 1,000 ML 100 ML IV CONT ×3 (03:57→23:02)
[2021-08-14 04:00] VITALS: BP 134/107; PULSE 99; RESP 22; TEMP 36.3; O2SAT 100
[2021-08-14 07:51] LABS: Basophils Absolute Auto 0.1 K/mm3 (0.0-0.1); Basophils Percent Auto 0.9 % (0.2-1.2); Eosinophils Absolute Auto 0.2 K/mm3 (0-0.3); Eosinophils Percent Auto 1.8 % (0-4.4); Hematocrit 36.5 % (42.0-52.0); Hemoglobin 11.6 g/dL (14.0-18.0); Immature Granulocyte Absolute 0.49 K/mm3 (0.00-0.031); Immature Granulocyte Percent A 4.2 % (0-0.5); Lymphocytes Absolute Auto 1.51 K/mm3 (0.9-3.2); Lymphocytes Percent Auto 12.8 % (18.3-44.2); Mean Corpuscular HGB Conc 31.8 g/dl (32-36); Mean Corpuscular Volume 88.2 fl (80-100); Mean Platelet Volume 8.6 fl (7.4-10.4); Monocytes Absolute Auto 1.8 K/mm3 (0.1-0.6); Monocytes Percent Auto 15.6 % (2.6-8.5); Neutrophils Absolute Auto 7.6 K/mm3 (1.3-6.7); Neutrophils Percent Auto 64.7 % (45.5-73.1); Platelet Count Result 345 k/mm3 (150-375); Red Blood Count 4.14 M/mm3 (4.6-6.20); White Blood Count 11.8 K/mm3 (4.5-10.0)
[2021-08-14 08:00] VITALS: BP 141/90; PULSE 92; RESP 16; TEMP 36.3; O2SAT 100
[2021-08-14] MEDS: ENOXAPARIN 40 MG/0.4 ML SYRINGE SUB-Q (08:00)
[2021-08-14] MEDS: POTASSIUM CHLORIDE 20 MEQ PACKET (FOR LIQUID) 40 MEQ PO (08:00)
[2021-08-14] MEDS: amLODIPine BESYLATE 5 MG TABLET PO (08:00)
[2021-08-14 08:01] LABS: Alanine Aminotransferase 51 U/L (4-50); Albumin Level 3.5 g/dL (3.5-5.1); Alkaline Phosphatase 93 U/L (38-126); Anion Gap 4 mmol/L (8-16); Aspartate Amino Transferase 42 U/L (17-59); Bilirubin,Total 0.6 mg/dL (0.2-1.3); Blood Urea Nitrogen 4 mg/dL (9-20); Calcium 8.9 mg/dL (8.4-10.2); Carbon Dioxide 32 mmol/L (22-30); Chloride 97 mmol/L (98-107); Estimated CRCL calculation 121 ml/min; Estimated Glomerular Filt Rate > 60; Glucose 89 mg/dL (65-110); Lipase 1652 U/L (23-300); Potassium 3.4 mmol/L (3.4-5.0); Sodium 133 mmol/L (137-145)
[2021-08-14 08:28] LABS: Lactic Acid Reflex < 0.5 mmol/L (0.7-2.1)
--- NOTE | 2021-08-14 09:59 | WPDGIPROGNO ---
Progress Note: A&P Assessment and Plan (1) Acute necrotizing pancreatitis: Code(s): K85.91 - Acute pancreatitis with uninfected necrosis, unspecified Status: Acute Assessment and Plan: Patient with ongoing acute necrotizing pancreatitis. Lipase remains elevated. We have allowed ice chips and liquids. Will continue to do so. Follow-up CT scan suggested Sunday. Continued supportive care. Will try Dulcolax suppository to encourage bowel function. Await complete resolution of ileus which persists to some degree. (2) COVID-19: Code(s): U07.1 - COVID-19 Status: Acute Subjective Date/time seen: 08/14/21 09:59 Patient continues to experience abdominal pain requiring pain injections. He has had no recent bowel movements. His continuing abdominal pain reported. Review of Systems Review of Systems: All systems reviewed & are unremarkable except as noted in HPI and below Exam Narrative: Physical exam reveals patient be alert. Vital signs are stable. He is afebrile. HEENT exam reveals no icterus. Lungs are clear. Heart without murmur. Abdomen bowel sounds present But decreased. soft nontender with no organomegaly. He has mild tympany and decreased bowel sounds. Objective Data Vital Signs Vital Signs: Vital Signs - 24 hr 08/13/21 12:52 08/13/21 15:55 08/13/21 20:00 Temperature 99.3 F 99.1 F 97.4 F L Pulse Rate 98 97 98 Respiratory Rate 14 14 22 H Blood Pressure 144/91 H 147/87 H 142/98 H Pulse Oximetry 98 98 100 08/14/21 00:00 08/14/21 04:00 08/14/21 08:00 Temperature 97.7 F 97.3 F L 97.3 F L Pulse Rate 97 99 92 Respiratory Rate 20 22 H 16 Blood Pressure 147/97 H 134/107 H 141/90 H Pulse Oximetry 99 100 100 Intake/Output Intake/Output: Intake & Output 08/11/21 08/12/21 08/13/21 08/14/21 23:59 23:59 23:59 23:59 Intake Total 2099 2497 4920 2240 Balance 2100 2497 4920 2240 Meds/Results Medications: Active Medications Generic Name Dose Route Start Last Admin Trade Name Freq PRN Reason Stop Dose Admin Amlodipine Besylate 5 mg 08/09/21 10:15 08/14/21 08:00 Amlodipine Besylate 5 Mg Tablet PO 5 mg QAM GEOFFREY Administration Diphenhydramine HCl 50 mg 08/11/21 14:56 Diphenhydramine Hcl Cap 25 Mg Capsule PO HS PRN insomnia Enoxaparin Sodium 40 mg 08/10/21 09:00 08/14/21 08:00 Enoxaparin 40 Mg/0.4 Ml Syringe SUB-Q 40 mg DAILY GEOFFREY Administration Hydromorphone HCl 1 mg 08/14/21 07:51 08/14/21 08:01 Hydromorphone Hcl Inj (*Crx) 1 Mg/Ml Syr IV PUSH 1 mg Q3H PRN Administration PAIN RATED 7-10 Sodium Chloride 1,000 mls @ 100 mls/hr 08/09/21 02:40 08/14/21 03:57 Normal Saline Iv IV CONT 100 mls/hr .Q10H GEOFFREY Administration Ibuprofen 600 mg 08/09/21 10:05 08/13/21 10:05 Ibuprofen 600 Mg Tablet PO 600 mg Q6H PRN Administration Pain 1-3 Melatonin 5 mg 08/11/21 21:00 08/13/21 20:29 Melatonin 5 Mg Tablet PO 5 mg HS GEOFFREY Administration Ondansetron HCl 4 mg 08/09/21 02:36 08/10/21 18:21 Ondansetron Inj 4 Mg/2 Ml Vial IV PUSH 4 mg Q4H PRN Administration Nausea Oxycodone HCl 2.5 mg 08/09/21 10:15 08/13/21 01:20 Oxycodone Hcl (*Crx) 2.5 Mg Tab Ir PO 2.5 mg Q4H PRN Administration Pain Rated 4-6 Potassium Chloride 40 meq 08/13/21 09:00 08/14/21 08:00 Potassium Chloride 20 Meq Packet (For Liquid) PO 40 meq DAILY GEOFFREY Administration Radiology Results: ITS Impressions Chest X-Ray 08/09/21 08:42 IMPRESSION: 1. No acute cardiopulmonary disease. Chest/Abdomen/Pelvis CTA 08/09/21 08:43 IMPRESSION: 1. Acute necrotizing pancreatitis. 2. Mild groundglass opacities in right lung lower lobe, consistent with pneumonia. Venous Doppler Study 08/09/21 12:09 IMPRESSION: 1. No deep venous thrombosis in either lower limb. Abdomen Ultrasound 08/09/21 13:03 IMPRESSION: 1. Normal right upper quadrant ultrasound. The region of necroti
--- NOTE | 2021-08-14 11:03 | PC.NURSE ---
patient would like to wait until 2 pm to take suppository.
[2021-08-14 12:00] VITALS: BP 130/86; PULSE 82; RESP 16; TEMP 36.4; O2SAT 100
--- NOTE | 2021-08-14 12:14 | PM.IMPN ---
Progress Note: A&P Assessment and Plan (1) Acute necrotizing pancreatitis: Code(s): K85.91 - Acute pancreatitis with uninfected necrosis, unspecified Status: Acute Assessment and Plan: -CTA w/ acute necrotizing pancreatitis -Etiology for his pancreatitis is unclear. He is on hydrochlorothiazide at home which has been shown to contribute. Will discontinue at this time. RUQ ultrasound negative. He drinks 4-6 beers per week, though he should avoid alcohol in the future to prevent recurrence of pancreatitis. -Consult to Gastroenterology. Input is appreciated -Lipase remains elevated, patient not tolerating clears as hoped. Scaled back to NPO w/ ice chips and small sips of liquids as tolerated. -Dulcolax suppository to encourage bowel function -Still has mild ileus from pancreatitis. Per GI repeat CT tomorrow morning. (2) COVID-19: Code(s): U07.1 - COVID-19 Status: Acute Assessment and Plan: Tested positive for COVID-19 on 08/05/[address] [facility] after being exposed to coworkers who were positive. CXR is clear. CTA of the chest shows mild ground-glass opacities of the right lower lobe consistent with pneumonia. Pt is doing well on room air (3) Hypertension: Code(s): I10 - Essential (primary) hypertension Status: Inactive Assessment and Plan: -Blood pressure has been elevated since presentation, this is likely due to pain. -As discussed above, his home hydrochlorothiazide will be discontinued -Started amlodipine 5 mg daily -Pain control is imperative. Anticipate blood pressure will improve as pain lessens. -Continue to monitor blood pressure trends and adjust medication regimen as needed -Today 141/90 (4) Elevated LFTs: Code(s): R79.89 - Other specified abnormal findings of blood chemistry Status: Acute Assessment and Plan: RUQ ultrasound normal, no cholelithiasis Improving, AST is 42, ALT is 50 (5) Lactic acidosis: Code(s): E87.2 - Acidosis Status: Resolved Assessment and Plan: Lactic acid is 0.8 now. Was likely elevated due to necrotizing pancreatitis. (6) Elevated d-dimer: Code(s): R79.89 - Other specified abnormal findings of blood chemistry Status: Acute Assessment and Plan: D-dimer noted to be 1.75 on presentation. CTA negative for pulmonary embolism BLE Venous Doppler negative (7) Insomnia: Code(s): G47.00 - Insomnia, unspecified Status: Acute Assessment and Plan: Sleeping good on melatonin Subjective Date/time seen: 08/14/21 12:14 Interval history: 26 yo male w/ hx of HTN admitted to the hospital for acute necrotizing pancreatitis. Pt found to have COVID on 08/05. Continues to have diffuse abdominal pain with IV narcotics around the clock. No bowel movements. No nausea or vomiting. Cough and sob have mostly resolved. Review of Systems Review of Systems: General: Denies fevers Eyes: Denies vision changes ENT: Denies nasal congestion or sore throat Respiratory: + cough, denies shortness of breath Cardiovascular: Denies chest pain or lower extremity edema Gastrointestinal: + abdominal pain, vomiting, or diarrhea Genitourinary: Denies dysuria Musculoskeletal: Denies back pain Neurological: Denies headache or motor weakness Integumentary: Denies rash Exam Narrative: General: appears uncomfortable, non toxic appearing Eyes: PERRL, no scleral icterus HEENT: NCAT, external ears normal, MMM Respiratory: No respiratory distress, Lungs CTA bilaterally, no wheezing Cardiovascular: RRR, no murmur Abdominal: moderate distension, moderate diffuse ttp, bowel sounds absent Musculoskeletal: Moves all 4 extremities, no edema Neurological: A/Ox3, speech normal, no facial asymmetry Skin: Warm, dry, no rashes Psychiatric: Normal affect, normal mood Objective Data Vital Signs
[2021-08-14] MEDS: BISACODYL 10 MG SUPPOSITORY RECTAL (14:01)
[2021-08-14 16:00] VITALS: BP 136/96; PULSE 95; RESP 18; TEMP 36.3; O2SAT 100
[2021-08-14 20:00] VITALS: BP 138/95; PULSE 87; RESP 18; TEMP 36.5; O2SAT 100
[2021-08-14] MEDS: MELATONIN 5 MG TABLET PO (23:02)
[2021-08-15] VITALS (7 sets, daily range): BP systolic 128–166; BP diastolic 77–107; PULSE 69–94; RESP 14–20; TEMP 36–36.6; O2SAT 99–100
[2021-08-15] MEDS: HYDROmorphone HCL INJ (*CRX) 1 MG/ML SYR IV PUSH ×7 (01:56→21:30)
[2021-08-15] MEDS: SODIUM CHLORIDE 0.9% IV 1,000 ML 100 ML IV CONT ×2 (05:29→16:36)
[2021-08-15 06:12] LABS: Alanine Aminotransferase 47 U/L (4-50); Albumin Level 3.5 g/dL (3.5-5.1); Alkaline Phosphatase 85 U/L (38-126); Anion Gap 8 mmol/L (8-16); Aspartate Amino Transferase 36 U/L (17-59); Bilirubin,Total 0.5 mg/dL (0.2-1.3); Blood Urea Nitrogen 2 mg/dL (9-20); Carbon Dioxide 26 mmol/L (22-30); Chloride 100 mmol/L (98-107); Estimated CRCL calculation 108 ml/min; Estimated Glomerular Filt Rate > 60; Glucose 96 mg/dL (65-110); Lipase 1498 U/L (23-300); Potassium 3.8 mmol/L (3.4-5.0); Sodium 134 mmol/L (137-145)
[2021-08-15 06:18] LABS: Basophils Percent Auto 0.3 % (0.2-1.2); Eosinophils Absolute Auto 0.2 K/mm3 (0-0.3); Eosinophils Percent Auto 2.2 % (0-4.4); Hematocrit 36.4 % (42.0-52.0); Hemoglobin 11.6 g/dL (14.0-18.0); Immature Granulocyte Absolute 0.66 K/mm3 (0.00-0.031); Immature Granulocyte Percent A 6.4 % (0-0.5); Lymphocytes Absolute Auto 1.72 K/mm3 (0.9-3.2); Lymphocytes Percent Auto 16.6 % (18.3-44.2); Mean Corpuscular HGB Conc 31.9 g/dl (32-36); Mean Corpuscular Hemoglobin 28.1 pg (26-34); Mean Corpuscular Volume 88.1 fl (80-100); Mean Platelet Volume 8.4 fl (7.4-10.4); Monocytes Absolute Auto 1.8 K/mm3 (0.1-0.6); Neutrophils Absolute Auto 5.9 K/mm3 (1.3-6.7); Neutrophils Percent Auto 57.5 % (45.5-73.1); Platelet Count Result 415 k/mm3 (150-375); Red Blood Count 4.13 M/mm3 (4.6-6.20); Red Cell Distribution Width 14.7 % (11.5-14.5); White Blood Count 10.3 K/mm3 (4.5-10.0)
[2021-08-15] MEDS: amLODIPine BESYLATE 5 MG TABLET PO (08:04)
[2021-08-15] MEDS: ENOXAPARIN 40 MG/0.4 ML SYRINGE SUB-Q (08:04)
[2021-08-15] MEDS: POTASSIUM CHLORIDE 20 MEQ PACKET (FOR LIQUID) 40 MEQ PO (08:04)
--- NOTE | 2021-08-15 11:24 | PCNWS ---
Addendum entered by Shira Calero RD, LDN 08/16/21 14:06: Pt is currently NPO and TPN has been initiated. See nutritional assessment for more details. Original Note: Weekly nutritional screen. Pt screened in for 7 day length of stay. Patient is tolerating current diet with adequate intake. No weight loss reported. No nutritional needs at this time.
[2021-08-15] MEDS: IBUPROFEN 600 MG TABLET PO ×2 (11:29→18:35)
--- NOTE | 2021-08-15 12:37 | WPDGIPROGNO ---
Progress Note: A&P Assessment and Plan (1) Acute necrotizing pancreatitis: Code(s): K85.91 - Acute pancreatitis with uninfected necrosis, unspecified Status: Acute Assessment and Plan: CT scan of the abdomen performed today reveals worsening of his necrotizing pancreatitis. Given his ongoing pain with elevated lipase would suggest more strict bowel rest. Will allow him to have ice chips but make NPO. I discussed with the primary care service and will start TPN for nutritional care at this date. Perhaps several days of bowel rest and TPN would help. Continue close observation. No signs of an infection at present. (2) COVID-19: Code(s): U07.1 - COVID-19 Status: Acute Subjective Date/time seen: 08/15/21 12:37 Patient continues to complain of abdominal pain. He has had no recent bowel movements. He does occasionally pass flatus he states. Review of Systems Review of Systems: All systems reviewed & are unremarkable except as noted in HPI and below Exam Narrative: Physical exam reveals patient be alert and afebrile. HEENT exam reveals no icterus. Lungs are clear. Heart without murmur. Abdomen bowel sounds are present abdomen appears soft. He does have modest diffuse tympany. He is tender across the upper abdomen but no masses are encountered. Objective Data Vital Signs Vital Signs: Vital Signs - 24 hr 08/14/21 16:00 08/14/21 20:00 08/15/21 00:00 Temperature 97.4 F L 97.7 F 96.9 F L Pulse Rate 95 87 84 Respiratory Rate 18 18 18 Blood Pressure 136/96 H 138/95 H 166/88 H Pulse Oximetry 100 100 99 08/15/21 04:00 08/15/21 08:00 08/15/21 12:00 Temperature 96.8 F L 97.5 F L 97.0 F L Pulse Rate 89 94 92 Respiratory Rate 18 18 20 Blood Pressure 150/107 H 144/102 H 141/91 H Pulse Oximetry 100 100 100 Intake/Output Intake/Output: Intake & Output 08/12/21 08/13/21 08/14/21 08/15/21 23:59 23:59 23:59 23:59 Intake Total 2770 4920 5820 1500 Balance 2497 4920 5820 1500 Meds/Results Medications: Active Medications Generic Name Dose Route Start Last Admin Trade Name Freq PRN Reason Stop Dose Admin Amlodipine Besylate 5 mg 08/09/21 10:15 08/15/21 08:04 Amlodipine Besylate 5 Mg Tablet PO 5 mg QAM GEOFFREY Administration Diphenhydramine HCl 50 mg 08/11/21 14:56 Diphenhydramine Hcl Cap 25 Mg Capsule PO HS PRN insomnia Enoxaparin Sodium 40 mg 08/10/21 09:00 08/15/21 08:04 Enoxaparin 40 Mg/0.4 Ml Syringe SUB-Q 40 mg DAILY GEOFFREY Administration Hydromorphone HCl 1 mg 08/14/21 07:51 08/15/21 11:30 Hydromorphone Hcl Inj (*Crx) 1 Mg/Ml Syr IV PUSH 1 mg Q3H PRN Administration PAIN RATED 7-10 Sodium Chloride 1,000 mls @ 100 mls/hr 08/09/21 02:40 08/15/21 05:29 Normal Saline Iv IV CONT 100 mls/hr .Q10H GEOFFREY Administration Ibuprofen 600 mg 08/09/21 10:05 08/15/21 11:29 Ibuprofen 600 Mg Tablet PO 600 mg Q6H PRN Administration Pain 1-3 Melatonin 5 mg 08/11/21 21:00 08/14/21 23:02 Melatonin 5 Mg Tablet PO 5 mg HS GEOFFREY Administration Ondansetron HCl 4 mg 08/09/21 02:36 08/10/21 18:21 Ondansetron Inj 4 Mg/2 Ml Vial IV PUSH 4 mg Q4H PRN Administration Nausea Oxycodone HCl 2.5 mg 08/09/21 10:15 08/13/21 01:20 Oxycodone Hcl (*Crx) 2.5 Mg Tab Ir PO 2.5 mg Q4H PRN Administration Pain Rated 4-6 Potassium Chloride 40 meq 08/13/21 09:00 08/15/21 08:04 Potassium Chloride 20 Meq Packet (For Liquid) PO 40 meq DAILY GEOFFREY Administration Radiology Results: ITS Impressions Chest X-Ray 08/09/21 08:42 IMPRESSION: 1. No acute cardiopulmonary disease. Chest/Abdomen/Pelvis CTA 08/09/21 08:43 IMPRESSION: 1. Acute necrotizing pancreatitis. 2. Mild groundglass opacities in right lung lower lobe, consistent with pneumonia. Venous Doppler Study 08/09/21 12:09 IMPRESSION: 1. No deep venous thrombosis in either lower limb. Abdomen Ultrasound 07/27
--- NOTE | 2021-08-15 14:18 | PM.IMPN ---
Progress Note: A&P Assessment and Plan (1) Acute necrotizing pancreatitis: Code(s): K85.91 - Acute pancreatitis with uninfected necrosis, unspecified Status: Acute Assessment and Plan: -CTA w/ acute necrotizing pancreatitis -Etiology for his pancreatitis is unclear. He is on hydrochlorothiazide at home which has been shown to contribute. Will discontinue at this time. RUQ ultrasound negative. He drinks 4-6 beers per week, though he should avoid alcohol in the future to prevent recurrence of pancreatitis. -Lipase remains elevated, patient not tolerating clears as hoped. Scaled back to NPO w/ ice chips and small sips of liquids as tolerated. -Dulcolax suppository to encourage bowel function -Still has mild ileus from pancreatitis. NG tube was considered but patient refused at the time. -Repeat CT scan today with worsening necrotizing pancreatitis -Discussed with GI, plan to continue NPO with ice chips and add PPN while the pancreatitis has time to resolve (2) COVID-19: Code(s): U07.1 - COVID-19 Status: Acute Assessment and Plan: Tested positive for COVID-19 on 08/05/2021 at [facility] after being exposed to coworkers who were positive. CXR is clear. CTA of the chest shows mild ground-glass opacities of the right lower lobe consistent with pneumonia. Pt is doing well on room air (3) Hypertension: Code(s): I10 - Essential (primary) hypertension Status: Inactive Assessment and Plan: -Blood pressure has been elevated since presentation, this is likely due to pain. -As discussed above, his home hydrochlorothiazide will be discontinued -Started amlodipine 5 mg daily -Pain control is imperative. Anticipate blood pressure will improve as pain lessens. -Continue to monitor blood pressure trends and adjust medication regimen as needed -Today 141/91 (4) Elevated LFTs: Code(s): R79.89 - Other specified abnormal findings of blood chemistry Status: Acute Assessment and Plan: RUQ ultrasound normal, no cholelithiasis This has resolved Pt requesting IV Tylenol. This will be given judiciously due to recent elevated LFTs but a few doses should be fine with close monitoring (5) Lactic acidosis: Code(s): E87.2 - Acidosis Status: Resolved Assessment and Plan: Lactic acid is 0.8 now. Was likely elevated due to necrotizing pancreatitis. (6) Elevated d-dimer: Code(s): R79.89 - Other specified abnormal findings of blood chemistry Status: Acute Assessment and Plan: D-dimer noted to be 1.75 on presentation. CTA negative for pulmonary embolism BLE Venous Doppler negative (7) Insomnia: Code(s): G47.00 - Insomnia, unspecified Status: Acute Assessment and Plan: Sleeping good on melatonin. also has Benadryl prn which is what he takes at home for insomnia. Subjective Date/time seen: 08/15/21 14:18 Interval history: 26 yo male w/ hx of HTN admitted to the hospital for acute necrotizing pancreatitis. Pt found to have COVID on 08/05. Continues to have diffuse abdominal pain with IV narcotics around the clock. No bowel movements. No nausea or vomiting. Cough and sob have mostly resolved. Review of Systems Review of Systems: General: Denies fevers Eyes: Denies vision changes ENT: Denies nasal congestion or sore throat Respiratory: + cough, denies shortness of breath Cardiovascular: Denies chest pain or lower extremity edema Gastrointestinal: + abdominal pain, denies vomiting, or diarrhea Genitourinary: Denies dysuria Musculoskeletal: Denies back pain Neurological: Denies headache or motor weakness Integumentary: Denies rash Exam Narrative: General: appears uncomfortable, non toxic appearing Eyes: PERRL, no scleral icterus HEENT: NCAT, external ears normal, MMM Respiratory: No respiratory distress, Lungs CTA bilaterally,
[2021-08-15] MEDS: AMINO ACIDS 4.25%/D5W/LYTES/CA 2,000 ML 80 ML IV CONT (15:10)
[2021-08-15 15:12] LABS: Hematocrit 36.6 % (42.0-52.0); Hemoglobin 11.8 g/dL (14.0-18.0); Mean Corpuscular HGB Conc 32.2 g/dl (32-36); Mean Corpuscular Volume 86.7 fl (80-100); Mean Platelet Volume 8.4 fl (7.4-10.4); Platelet Count Result 496 k/mm3 (150-375); Red Blood Count 4.22 M/mm3 (4.6-6.20); Red Cell Distribution Width 15.1 % (11.5-14.5); White Blood Count 9.4 K/mm3 (4.5-10.0)
[2021-08-15 15:30] LABS: Alanine Aminotransferase 46 U/L (4-50); Alkaline Phosphatase 86 U/L (38-126); Aspartate Amino Transferase 37 U/L (17-59); Bilirubin,Total 0.4 mg/dL (0.2-1.3); Glucose 88 mg/dL (65-110); Magnesium 2.3 mg/dL (1.6-2.3)
[2021-08-15 15:39] LABS: Transferrin 130 mg/dL (206-381)
[2021-08-15 15:53] LABS: Albumin Level 3.8 g/dL (3.5-5.1); Anion Gap 9 mmol/L (8-16); Blood Urea Nitrogen 3 mg/dL (9-20); Carbon Dioxide 28 mmol/L (22-30); Chloride 99 mmol/L (98-107); Estimated CRCL calculation 108 ml/min; Estimated Glomerular Filt Rate > 60; Potassium 4.1 mmol/L (3.4-5.0); Sodium 136 mmol/L (137-145)
[2021-08-15 16:23] LABS: Partial Thromboplastin Time 40.5 SECONDS (22.3-36.8)
[2021-08-15 16:53] LABS: Band Neutrophils Percent 5 % (0-6); Lymphocytes Absolute Manual 1.78 K/mm3 (1.1-4.5); Monocytes Absolute Manual 1.31 K/mm3 (0.1-0.90); Monocytes Percent Manual 14 % (3-9); Neutrophils Absolute Manual 6.29 K/mm3 (1.3-6.7); Neutrophils Percent Manual 62 % (46-73); Platelet Estimate Increased (Adequate); Total Cells Counted 100
[2021-08-15 16:54] LABS: Anisocytosis 2+ (NORMAL)
[2021-08-15 18:35] LABS: Glucose Point of Care 100 mg/dl (65-105)
[2021-08-15] MEDS: MELATONIN 5 MG TABLET PO (21:30)
[2021-08-16] MEDS: HYDROmorphone HCL INJ (*CRX) 1 MG/ML SYR IV PUSH ×9 (00:26→23:13)
[2021-08-16] MEDS: SODIUM CHLORIDE 0.9% IV 1,000 ML 100 ML IV CONT ×3 (02:45→21:37)
[2021-08-16 04:00] VITALS: BP 143/90; PULSE 77; RESP 16; TEMP 36.4; O2SAT 99
[2021-08-16 06:16] LABS: Basophils Absolute Auto 0.1 K/mm3 (0.0-0.1); Basophils Percent Auto 1.4 % (0.2-1.2); Eosinophils Absolute Auto 0.2 K/mm3 (0-0.3); Eosinophils Percent Auto 2.8 % (0-4.4); Hematocrit 35.3 % (42.0-52.0); Hemoglobin 11.4 g/dL (14.0-18.0); Immature Granulocyte Absolute 0.68 K/mm3 (0.00-0.031); Immature Granulocyte Percent A 7.8 % (0-0.5); Lymphocytes Absolute Auto 1.66 K/mm3 (0.9-3.2); Lymphocytes Percent Auto 19.1 % (18.3-44.2); Mean Corpuscular HGB Conc 32.3 g/dl (32-36); Mean Corpuscular Hemoglobin 28.1 pg (26-34); Mean Corpuscular Volume 86.9 fl (80-100); Mean Platelet Volume 8.6 fl (7.4-10.4); Monocytes Absolute Auto 1.4 K/mm3 (0.1-0.6); Monocytes Percent Auto 15.9 % (2.6-8.5); Neutrophils Absolute Auto 4.6 K/mm3 (1.3-6.7); Platelet Count Result 509 k/mm3 (150-375); Red Blood Count 4.06 M/mm3 (4.6-6.20); Red Cell Distribution Width 14.7 % (11.5-14.5); White Blood Count 8.7 K/mm3 (4.5-10.0)
[2021-08-16 06:33] LABS: Alanine Aminotransferase 39 U/L (4-50); Albumin Level 3.6 g/dL (3.5-5.1); Alkaline Phosphatase 83 U/L (38-126); Anion Gap 6 mmol/L (8-16); Aspartate Amino Transferase 33 U/L (17-59); Bilirubin,Total 0.4 mg/dL (0.2-1.3); Blood Urea Nitrogen 4 mg/dL (9-20); Calcium 9.1 mg/dL (8.4-10.2); Carbon Dioxide 32 mmol/L (22-30); Chloride 99 mmol/L (98-107); Estimated CRCL calculation 108 ml/min; Estimated Glomerular Filt Rate > 60; Glucose 110 mg/dL (65-110); Lipase 1308 U/L (23-300); Phosphorus 4.3 mg/dL (2.5-4.5); Potassium 3.6 mmol/L (3.4-5.0); Sodium 137 mmol/L (137-145)
[2021-08-16] MEDS: FAT EMULSIONS IV 20% 250 ML 20.83 ML IVPB (09:23)
[2021-08-16] MEDS: POTASSIUM CHLORIDE 20 MEQ PACKET (FOR LIQUID) 40 MEQ PO (09:25)
[2021-08-16] MEDS: amLODIPine BESYLATE 5 MG TABLET PO (09:25)
[2021-08-16] MEDS: ENOXAPARIN 40 MG/0.4 ML SYRINGE SUB-Q (09:25)
[2021-08-16] MEDS: IBUPROFEN 600 MG TABLET PO ×2 (09:42→16:11)
[2021-08-16 11:53] LABS: Glucose Point of Care 90 mg/dl (65-105)
[2021-08-16] MEDS: ONDANSETRON INJ 4 MG/2 ML VIAL IV PUSH (12:38)
[2021-08-16 13:31] VITALS: BMI 26.4
--- NOTE | 2021-08-16 13:31 | WPDGIPROGNO ---
Progress Note: A&P Assessment and Plan (1) Acute necrotizing pancreatitis: Code(s): K85.91 - Acute pancreatitis with uninfected necrosis, unspecified Status: Acute Assessment and Plan: Patient with acute necrotizing pancreatitis. Follow-up CT scan reveals worsening of his pancreatitis. Lipase remains elevated in the 1300 range. plan for patient to be on bowel rest with TPN for now. Like to give it several days of bowel rest before restarting diet. Ice chips will be allowed. Continue supportive care for now. Nose evidence for infection present. Subjective Date/time seen: 08/16/21 13:31 Patient alert and comfortable today. Walking around the bedside. States he is very hungry. Still no recent bowel movements. He is passing flatus. No fevers reported. He still requires pain injections however. Started on PPN yesterday. Review of Systems Review of Systems: All systems reviewed & are unremarkable except as noted in HPI and below Exam Narrative: Physical exam patient is alert comfortable at rest. Afebrile and anicteric. Lungs are clear. Heart without murmur. Abdomen bowel sounds are present soft with no significant tenderness. Patient reports a recent pain injection. Objective Data Vital Signs Vital Signs: Vital Signs - 24 hr 08/15/21 16:00 08/15/21 20:00 08/15/21 23:45 Temperature 97.1 F L 97.8 F 97.8 F Pulse Rate 75 82 69 Respiratory Rate 14 16 16 Blood Pressure 128/77 139/99 H 132/86 Pulse Oximetry 100 100 100 08/16/21 04:00 Temperature 97.5 F L Pulse Rate 77 Respiratory Rate 16 Blood Pressure 143/90 H Pulse Oximetry 99 Intake/Output Intake/Output: Intake & Output 08/13/21 08/14/21 08/15/21 08/16/21 23:59 23:59 23:59 23:59 Intake Total 4920 5820 2990 2040 Balance 4920 5820 2990 2040 Meds/Results Medications: Active Medications Generic Name Dose Route Start Last Admin Trade Name Freq PRN Reason Stop Dose Admin Amlodipine Besylate 5 mg 08/09/21 10:15 08/16/21 09:25 Amlodipine Besylate 5 Mg Tablet PO 5 mg QAM GEOFFREY Administration Diphenhydramine HCl 50 mg 08/11/21 14:56 Diphenhydramine Hcl Cap 25 Mg Capsule PO HS PRN insomnia Enoxaparin Sodium 40 mg 08/10/21 09:00 08/16/21 09:25 Enoxaparin 40 Mg/0.4 Ml Syringe SUB-Q 40 mg DAILY GEOFFREY Administration Hydromorphone HCl 1 mg 08/14/21 07:51 08/16/21 12:33 Hydromorphone Hcl Inj (*Crx) 1 Mg/Ml Syr IV PUSH 1 mg Q3H PRN Administration PAIN RATED 7-10 Sodium Chloride 1,000 mls @ 100 mls/hr 08/09/21 02:40 08/16/21 12:35 Normal Saline Iv IV CONT 100 mls/hr .Q10H GEOFFREY Administration Fat Emulsion Intravenous 250 mls @ 20.833 mls/hr 08/16/21 09:00 08/16/21 09:23 Lipids 20% IVPB 20.83 mls/hr DAILY GEOFFREY Administration Dextrose 1,000 mls @ 50 mls/hr 08/15/21 14:15 Dextrose 10% IV CONT .Q20H PRN if PN is interrupted Amino Acids/Electrolytes/Dextrose 2,000 mls @ 80 mls/hr 08/15/21 14:15 08/15/21 15:10 Clinimix E 4.25%/5% Solution IV CONT 80 mls/hr .Q24H GEOFFREY Administration Protocol Ibuprofen 600 mg 08/09/21 10:05 08/16/21 09:42 Ibuprofen 600 Mg Tablet PO 600 mg Q6H PRN Administration Pain 1-3 Melatonin 5 mg 08/11/21 21:00 08/15/21 21:30 Melatonin 5 Mg Tablet PO 5 mg HS GEOFFREY Administration Ondansetron HCl 4 mg 08/09/21 02:36 08/16/21 12:38 Ondansetron Inj 4 Mg/2 Ml Vial IV PUSH 4 mg Q4H PRN Administration Nausea Oxycodone HCl 2.5 mg 08/09/21 10:15 08/13/21 01:20 Oxycodone Hcl (*Crx) 2.5 Mg Tab Ir PO 2.5 mg Q4H PRN Administration Pain Rated 4-6 Potassium Chloride 40 meq 08/13/21 09:00 08/16/21 09:25 Potassium Chloride 20 Meq Packet (For Liquid) PO 40 meq DAILY GEOFFREY Administration Radiology Results: ITS Impressions Chest X-Ray 08/09/21 08:42 IMPRESSION: 1. No acute cardiopulmonary disease. Chest/Abdomen/Pelvis CTA 08/09/21 08:43 IMPRESSION
[2021-08-16 14:00] VITALS: BP 130/84; PULSE 78; RESP 20; TEMP 36.4; O2SAT 100
[2021-08-16 14:30] LABS: Triglycerides 192 mg/dL (<150)
[2021-08-16] MEDS: AMINO ACIDS 4.25%/D5W/LYTES/CA 2,000 ML 80 ML IV CONT (14:30)
--- NOTE | 2021-08-16 16:47 | PM.IMPN ---
Progress Note: A&P Assessment and Plan (1) Acute necrotizing pancreatitis: Code(s): K85.91 - Acute pancreatitis with uninfected necrosis, unspecified Status: Acute Assessment and Plan: -CTA w/ acute necrotizing pancreatitis -Etiology for his pancreatitis is unclear. RUQ ultrasound negative. He drinks 4-6 beers per week, though he should avoid alcohol in the future to prevent recurrence of pancreatitis. HCTZ discontinued. -Lipase remains elevated, though beginning to trend down. 1300 today. -did not tolerate clears. Scaled back to NPO for bowel rest. PPN initiated. Ice chips as tolerated. -continue IV fluids -supportive care. Analgesics available as needed. -repeat CT scan 08/15/2021 showed worsened necrotizing pancreatitis -noted to have mild ileus related to pancreatitis. Last BM 2 days ago and reports passing flatus. Continue Dulcolax (2) COVID-19: Code(s): U07.1 - COVID-19 Status: Acute Assessment and Plan: Tested positive for COVID-19 on 08/05/2021 at [facility] after being exposed to coworkers who were positive. -CXR is clear. CTA of the chest showed mild ground-glass opacities of the right lower lobe consistent with pneumonia. -Pt is doing well on room air; now off isolation (3) Hypertension: Code(s): I10 - Essential (primary) hypertension Status: Inactive Assessment and Plan: Blood pressure has been elevated since presentation, this is likely due to pain. Improving somewhat today. Last BP 130/84 -HCTZ discontinued -continue amlodipine 5 mg daily -Pain control is imperative. Anticipate blood pressure will improve as pain lessens. -Continue to monitor blood pressure trends and adjust medication regimen as needed (4) Elevated LFTs: Code(s): R79.89 - Other specified abnormal findings of blood chemistry Status: Acute Assessment and Plan: LFTs elevated on presentation -may be related to acute viral illness -RUQ ultrasound normal, no cholelithiasis -LFTs have normalized (5) Lactic acidosis: Code(s): E87.2 - Acidosis Status: Resolved Assessment and Plan: Resolved. Was likely elevated due to necrotizing pancreatitis. (6) Elevated d-dimer: Code(s): R79.89 - Other specified abnormal findings of blood chemistry Status: Acute Assessment and Plan: D-dimer noted to be 1.75 on presentation. -CTA negative for pulmonary embolism -BLE Venous Doppler negative -likely secondary to COVID-19 (7) Insomnia: Code(s): G47.00 - Insomnia, unspecified Status: Acute Assessment and Plan: Improved but still having difficulty sleeping through the night because he is waking up in pain. -continue melatonin -Benadryl prn which is what he takes at home for insomnia. Subjective Date/time seen: 08/16/21 16:47 Interval history: Date of service: 08/16/2021 Varsha Sun is a 26-year-old male with a history of hypertension and anxiety who is seen in follow-up for acute necrotizing pancreatitis. He is feeling better than when he 1st got here though still having significant pain. This morning he said his pain is up to 8/10 and improved to 7/10 after receiving pain medications. The pain is concentrated in his mid abdomen and radiates to the left and right flank and radiates to the back. This morning he felt somewhat nauseous but has not had any episodes of vomiting. He did feel little bit lightheaded today with onset of pain. His last follow-up was 2 days ago. He denies any urinary symptoms. He is having hard time sleeping. Denies shortness breath, cough, chest pain, palpitations, fevers, chills, body aches. Review of Systems Review of Systems: All systems reviewed & are unremarkable except as noted in HPI and below Exam Narrative: Mr. Sun is a well-nourished, well-appearing 26-year-old male who is S the bedside. He appears comfortable is in NARD.
[2021-08-16 18:03] LABS: Glucose Point of Care 111 mg/dl (65-105)
[2021-08-16 20:00] VITALS: PULSE 92; RESP 16; O2SAT 100
[2021-08-16] MEDS: diphenhydrAMINE HCl CAP 25 MG CAPSULE 50 MG PO (20:47)
[2021-08-16] MEDS: MELATONIN 5 MG TABLET PO (20:48)
[2021-08-16 22:00] VITALS: BP 121/76; PULSE 92; RESP 16; TEMP 36.6; O2SAT 100
[2021-08-17] MEDS: HYDROmorphone HCL INJ (*CRX) 1 MG/ML SYR IV PUSH ×6 (02:16→21:42)
[2021-08-17] MEDS: IBUPROFEN 600 MG TABLET PO ×2 (05:30→16:45)
[2021-08-17 06:00] VITALS: BP 130/84; PULSE 89; RESP 16; TEMP 36.7; O2SAT 100
[2021-08-17 06:59] LABS: Anion Gap 7 mmol/L (8-16); Blood Urea Nitrogen 8 mg/dL (9-20); Calcium 8.9 mg/dL (8.4-10.2); Carbon Dioxide 25 mmol/L (22-30); Chloride 102 mmol/L (98-107); Estimated CRCL calculation 108 ml/min; Estimated Glomerular Filt Rate > 60; Glucose 115 mg/dL (65-110); Phosphorus 4.4 mg/dL (2.5-4.5); Potassium 3.8 mmol/L (3.4-5.0); Sodium 134 mmol/L (137-145)
[2021-08-17 07:28] LABS: Glucose Point of Care 119 mg/dl (65-105)
--- NOTE | 2021-08-17 08:16 | WPDGIPROGNO ---
Progress Note: A&P Assessment and Plan (1) Acute necrotizing pancreatitis: Code(s): K85.91 - Acute pancreatitis with uninfected necrosis, unspecified Status: Acute Assessment and Plan: Patient with acute necrotizing pancreatitis. May be related to COVID. No other specific etiology identified. He does have a ileus that seems to be persistent. Lipase has remained elevated. At present we will try bowel rest for 1 more day. Currently on TPN. Dulcolax suppositories may help relieve some of the gas. Continue supportive care and close management. Subjective Date/time seen: 08/17/21 08:16 Patient alert appears more comfortable today. States he has no recent bowel movements. He did have small amount with recent [place] a lax suppositories. Still states he requires pain injections. But moves about bed very easily. Review of Systems Review of Systems: All systems reviewed & are unremarkable except as noted in HPI and below Exam Narrative: Physical exam reveals patient be alert. Vital signs stable. He is afebrile and anicteric. Lungs are clear. Heart without murmur. Abdomen bowel sounds diminished. Abdomen flat scaphoid mild tympany in the upper abdomen. Objective Data Vital Signs Vital Signs: Vital Signs - 24 hr 08/16/21 14:00 08/16/21 20:00 08/16/21 22:00 Temperature 97.6 F 97.8 F Pulse Rate 78 92 92 Respiratory Rate 20 16 16 Blood Pressure 130/84 121/76 Pulse Oximetry 100 100 100 08/17/21 06:00 Temperature 98.0 F Pulse Rate 89 Respiratory Rate 16 Blood Pressure 130/84 Pulse Oximetry 100 Intake/Output Intake/Output: Intake & Output 08/14/21 08/15/21 08/16/21 08/17/21 23:59 23:59 23:59 23:59 Intake Total 5820 2990 5040 30 Balance 5820 2990 5040 30 Meds/Results Medications: Active Medications Generic Name Dose Route Start Last Admin Trade Name Freq PRN Reason Stop Dose Admin Amlodipine Besylate 5 mg 08/09/21 10:15 08/16/21 09:25 Amlodipine Besylate 5 Mg Tablet PO 5 mg QAM GEOFFREY Administration Diphenhydramine HCl 50 mg 08/11/21 14:56 08/16/21 20:47 Diphenhydramine Hcl Cap 25 Mg Capsule PO 50 mg HS PRN Administration insomnia Enoxaparin Sodium 40 mg 08/10/21 09:00 08/16/21 09:25 Enoxaparin 40 Mg/0.4 Ml Syringe SUB-Q 40 mg DAILY GEOFFREY Administration Hydromorphone HCl 1 mg 08/14/21 07:51 08/17/21 05:32 Hydromorphone Hcl Inj (*Crx) 1 Mg/Ml Syr IV PUSH 1 mg Q3H PRN Administration PAIN RATED 7-10 Sodium Chloride 1,000 mls @ 100 mls/hr 08/09/21 02:40 08/16/21 21:37 Normal Saline Iv IV CONT 100 mls/hr .Q10H GEOFFREY Administration Fat Emulsion Intravenous 250 mls @ 20.833 mls/hr 08/16/21 09:00 08/16/21 09:23 Lipids 20% IVPB 20.83 mls/hr DAILY GEOFFREY Administration Dextrose 1,000 mls @ 50 mls/hr 08/15/21 14:15 Dextrose 10% IV CONT .Q20H PRN if PN is interrupted Amino Acids/Electrolytes/Dextrose 2,000 mls @ 80 mls/hr 08/15/21 14:15 08/16/21 14:30 Clinimix E 4.25%/5% Solution IV CONT 80 mls/hr .Q24H GEOFFREY Administration Protocol Ibuprofen 600 mg 08/09/21 10:05 08/17/21 05:30 Ibuprofen 600 Mg Tablet PO 600 mg Q6H PRN Administration Pain 1-3 Melatonin 5 mg 08/11/21 21:00 08/16/21 20:48 Melatonin 5 Mg Tablet PO 5 mg HS GEOFFREY Administration Ondansetron HCl 4 mg 08/09/21 02:36 08/16/21 12:38 Ondansetron Inj 4 Mg/2 Ml Vial IV PUSH 4 mg Q4H PRN Administration Nausea Oxycodone HCl 2.5 mg 08/09/21 10:15 08/13/21 01:20 Oxycodone Hcl (*Crx) 2.5 Mg Tab Ir PO 2.5 mg Q4H PRN Administration Pain Rated 4-6 Potassium Chloride 40 meq 08/13/21 09:00 08/16/21 09:25 Potassium Chloride 20 Meq Packet (For Liquid) PO 40 meq DAILY GEOFFREY Administration Radiology Results: ITS Impressions Chest X-Ray 08/09/21 08:42 IMPRESSION: 1. No acute cardiopulmonary disease. Chest/Abdomen/Pelvis CTA 08/09/21 08:43 IMPRESSION: 1. Acut
[2021-08-17] MEDS: SODIUM CHLORIDE 0.9% IV 1,000 ML 100 ML IV CONT ×2 (09:40→21:41)
[2021-08-17] MEDS: ENOXAPARIN 40 MG/0.4 ML SYRINGE SUB-Q (09:40)
[2021-08-17] MEDS: POTASSIUM CHLORIDE 20 MEQ PACKET (FOR LIQUID) 40 MEQ PO (09:40)
[2021-08-17] MEDS: amLODIPine BESYLATE 5 MG TABLET PO (09:47)
[2021-08-17] MEDS: FAT EMULSIONS IV 20% 250 ML 20.83 ML IVPB (10:06)
--- NOTE | 2021-08-17 10:21 | PM.IMPN ---
Progress Note: A&P Assessment and Plan (1) Acute necrotizing pancreatitis: Code(s): K85.91 - Acute pancreatitis with uninfected necrosis, unspecified Status: Acute Assessment and Plan: CTA w/ acute necrotizing pancreatitis -Etiology for his pancreatitis is unclear. RUQ ultrasound negative. He drinks 4-6 beers per week, though he should avoid alcohol in the future to prevent recurrence of pancreatitis. HCTZ discontinued. -Lipase remains elevated, though beginning to trend down. -Continue bowel rest. NPO diet. PPN initiated. Ice chips as tolerated. -continue IV fluids while NPO -supportive care. Analgesics available as needed. -repeat CT scan 08/15/2021 showed worsened necrotizing pancreatitis (2) COVID-19: Code(s): U07.1 - COVID-19 Status: Acute Assessment and Plan: Tested positive for COVID-19 on 08/05/2021 at [facility] after being exposed to coworkers who were positive. -CXR is clear. CTA of the chest showed mild ground-glass opacities of the right lower lobe consistent with pneumonia. -Pt is doing well on room air -He is off isolation (3) Hypertension: Code(s): I10 - Essential (primary) hypertension Status: Inactive Assessment and Plan: Blood pressure has been elevated since presentation, this is likely due to pain.Overall improving. Last BP 121/80 -HCTZ discontinued -continue amlodipine 5 mg daily -Pain control -Continue to monitor blood pressure trends and adjust medication regimen as needed (4) Elevated LFTs: Code(s): R79.89 - Other specified abnormal findings of blood chemistry Status: Acute Assessment and Plan: LFTs elevated on presentation -may be related to acute viral illness -RUQ ultrasound normal, no cholelithiasis -LFTs have normalized (5) Lactic acidosis: Code(s): E87.2 - Acidosis Status: Resolved Assessment and Plan: Resolved. -Was likely elevated due to necrotizing pancreatitis. (6) Elevated d-dimer: Code(s): R79.89 - Other specified abnormal findings of blood chemistry Status: Acute Assessment and Plan: D-dimer noted to be 1.75 on presentation. -CTA negative for pulmonary embolism -BLE Venous Doppler negative -likely secondary to COVID-19 (7) Insomnia: Code(s): G47.00 - Insomnia, unspecified Status: Acute Assessment and Plan: Improved but still having difficulty sleeping through the night because he is waking up in pain. -continue melatonin -One time dose trazodone tonight to hopefully allow him to get some rest. Discussed that this would not be continued repeatedly (8) Ileus: Code(s): K56.7 - Ileus, unspecified Status: Acute Assessment and Plan: [place] to be related to pancreatitis. -Last BM 2 days ago -Passing flatus today -Dulcolax suppository today -Encourage ambulation Subjective Date/time seen: 08/17/21 10:21 Interval history: Date of service: 08/17/2021 Varsha Sun is a 26-year-old male with a history of hypertension and anxiety who is seen in follow-up for acute necrotizing pancreatitis. He is starting to feel a little bit better today. States his pain is more tolerable. Still rating pain as 7/10 in the mid abdomen and right and left flank. He also endorses wall over body aches. He has been able to get around without difficulty. He states he has been trying to walk around his room and do some exercises. He still has not had a bowel movement. He is passing flatus. Denies nausea or vomiting. No shortness of breath, cough, or chest pain. No fevers or chills. He has been having a lot of trouble sleeping and was not able to get any rest last night. Review of Systems Review of Systems: All systems reviewed & are unremarkable except as noted in HPI and below Exam Narrative: Mr. Sun is a well-nourished, well-appearing 26-year-old male who is S the bedside. He appe
[2021-08-17] MEDS: BISACODYL 10 MG SUPPOSITORY RECTAL (10:35)
[2021-08-17 11:59] LABS: Glucose Point of Care 94 mg/dl (65-105)
[2021-08-17 14:00] VITALS: BP 121/80; PULSE 83; RESP 16; TEMP 36.2; O2SAT 100
[2021-08-17] MEDS: AMINO ACIDS 4.25%/D5W/LYTES/CA 2,000 ML 80 ML IV CONT (14:39)
[2021-08-17 17:27] LABS: Glucose Point of Care 83 mg/dl (65-105)
[2021-08-17] MEDS: MELATONIN 5 MG TABLET PO (21:42)
[2021-08-17 21:45] VITALS: PULSE 91; RESP 18; O2SAT 99
[2021-08-17 22:00] VITALS: BP 131/80; PULSE 91; RESP 18; TEMP 36.7; O2SAT 99
[2021-08-17] MEDS: traZODone HCL 25 MG TABLET PO (23:05)
[2021-08-18] MEDS: HYDROmorphone HCL INJ (*CRX) 1 MG/ML SYR IV PUSH ×5 (00:15→22:41)
[2021-08-18 05:40] VITALS: BP 135/79; PULSE 77; RESP 18; TEMP 37.6; O2SAT 99
[2021-08-18 06:42] LABS: Hematocrit 37.7 % (42.0-52.0); Hemoglobin 11.9 g/dL (14.0-18.0); Mean Corpuscular HGB Conc 31.6 g/dl (32-36); Mean Corpuscular Hemoglobin 27.6 pg (26-34); Mean Corpuscular Volume 87.5 fl (80-100); Mean Platelet Volume 8.7 fl (7.4-10.4); Platelet Count Result 675 k/mm3 (150-375); Red Blood Count 4.31 M/mm3 (4.6-6.20); Red Cell Distribution Width 14.7 % (11.5-14.5); White Blood Count 8.1 K/mm3 (4.5-10.0)
[2021-08-18 06:46] LABS: Alanine Aminotransferase 40 U/L (4-50); Albumin Level 3.7 g/dL (3.5-5.1); Alkaline Phosphatase 77 U/L (38-126); Anion Gap 12 mmol/L (8-16); Aspartate Amino Transferase 42 U/L (17-59); Bilirubin,Total 0.4 mg/dL (0.2-1.3); Blood Urea Nitrogen 8 mg/dL (9-20); Calcium 9.2 mg/dL (8.4-10.2); Carbon Dioxide 25 mmol/L (22-30); Chloride 101 mmol/L (98-107); Estimated CRCL calculation 90 ml/min; Estimated Glomerular Filt Rate > 60; Glucose 144 mg/dL (65-110); Lipase 1271 U/L (23-300); Magnesium 2.1 mg/dL (1.6-2.3); Phosphorus 4.5 mg/dL (2.5-4.5); Potassium 4.2 mmol/L (3.4-5.0); Sodium 138 mmol/L (137-145)
[2021-08-18 07:40] LABS: Anisocytosis 1+ (NORMAL); Atypical Lymphocytes Present; Band Neutrophils Percent 5 % (0-6); Eosinophils Absolute Manual 0.24 K/mm3 (0.02-0.5); Eosinophils Percent Manual 3 % (0-4); Metamyelocytes Percent 6 %; Monocytes Absolute Manual 0.56 K/mm3 (0.1-0.90); Monocytes Percent Manual 7 % (3-9); Myelocytes Percent 1 %; Neutrophils Absolute Manual 5.02 K/mm3 (1.3-6.7); Neutrophils Percent Manual 57 % (46-73); Platelet Estimate Increased (Adequate); Total Cells Counted 100
[2021-08-18] MEDS: ENOXAPARIN 40 MG/0.4 ML SYRINGE SUB-Q (10:20)
[2021-08-18] MEDS: POTASSIUM CHLORIDE 20 MEQ PACKET (FOR LIQUID) 40 MEQ PO (10:21)
[2021-08-18] MEDS: amLODIPine BESYLATE 5 MG TABLET PO (10:21)
[2021-08-18] MEDS: IBUPROFEN 600 MG TABLET PO ×2 (10:25→16:20)
[2021-08-18] MEDS: SODIUM CHLORIDE 0.9% IV 1,000 ML 100 ML IV CONT (12:02)
--- NOTE | 2021-08-18 12:42 | PM.IMPN ---
Progress Note: A&P Assessment and Plan (1) Acute necrotizing pancreatitis: Code(s): K85.91 - Acute pancreatitis with uninfected necrosis, unspecified Status: Acute Assessment and Plan: CTA w/ acute necrotizing pancreatitis -Etiology for his pancreatitis is unclear. RUQ ultrasound negative. He drinks 4-6 beers per week, though he should avoid alcohol in the future to prevent recurrence of pancreatitis. HCTZ discontinued. -Lipase remains elevated but trending down. 1271 today -begin clear liquid diet today. Will discontinue PPN if tolerating clears -supportive care. Analgesics available as needed. -repeat CT scan 08/15/2021 showed worsened necrotizing pancreatitis (2) COVID-19: Code(s): U07.1 - COVID-19 Status: Acute Assessment and Plan: Tested positive for COVID-19 on 08/05/2021 at [facility] after being exposed to coworkers who were positive. -CXR is clear. CTA of the chest showed mild ground-glass opacities of the right lower lobe consistent with pneumonia. -Pt is doing well on room air -He is off isolation (3) Hypertension: Code(s): I10 - Essential (primary) hypertension Status: Inactive Assessment and Plan: Blood pressure elevated initially, likely due to pain.Overall improving. Last BP 135/79 -HCTZ discontinued -continue amlodipine 5 mg daily -Pain control -Continue to monitor blood pressure trends and adjust medication regimen as needed (4) Elevated LFTs: Code(s): R79.89 - Other specified abnormal findings of blood chemistry Status: Acute Assessment and Plan: LFTs elevated on presentation -may be related to acute viral illness -RUQ ultrasound normal, no cholelithiasis -LFTs have normalized -Will continue to monitor with addition of hydrocodone-acetaminophen. (5) Lactic acidosis: Code(s): E87.2 - Acidosis Status: Resolved Assessment and Plan: Resolved. -Was likely elevated due to necrotizing pancreatitis. (6) Elevated d-dimer: Code(s): R79.89 - Other specified abnormal findings of blood chemistry Status: Acute Assessment and Plan: D-dimer noted to be 1.75 on presentation. -CTA negative for pulmonary embolism -BLE Venous Doppler negative -likely secondary to COVID-19 (7) Insomnia: Code(s): G47.00 - Insomnia, unspecified Status: Acute Assessment and Plan: Improved but still having difficulty sleeping through the night because he is waking up in pain. -continue melatonin -One time dose trazodone not helpful. Will discontinue. (8) Ileus: Code(s): K56.7 - Ileus, unspecified Status: Acute Assessment and Plan: [place] to be related to pancreatitis. -Seems to be resolved -He had a formed bowel movement today -Dulcolax suppository as needed -Encourage ambulation Subjective Date/time seen: 08/18/21 12:42 Interval history: Date of service: 08/18/2021 Varsha Sun is a 26-year-old male with a history of hypertension and anxiety who is seen in follow-up for acute necrotizing pancreatitis. Still endorsing pain which he rates as 8/10. States the pain starts in his mid abdomen, radiates out towards the flanks and up to the back. He says that the IV pain medication is not keeping his pain at been a long enough, stating only last about 10 minutes. He would like to try oral pain medication. He denies shortness of breath her cough, but does note that sometimes when his pain in his abdomen is severe, he feels that also radiate to the chest and it is harder to take deep breaths. He did have a formed bowel movement this morning. No urinary symptoms. He will try clear liquids later today. He did get a little more sleep last night though still having difficulty with insomnia. Review of Systems Review of Systems: All systems reviewed & are unremarkable except as noted in HPI and below Exam Narrative: Mr. Sun
[2021-08-18] MEDS: FAT EMULSIONS IV 20% 250 ML 20.83 ML IVPB (12:50)
[2021-08-18] MEDS: HYDROcodone/acetaminophen (*CRX) 5-325 MG TABLET 1 TAB PO (13:28)
[2021-08-18 14:00] VITALS: BP 139/71; PULSE 99; RESP 20; TEMP 36.8; O2SAT 99
--- NOTE | 2021-08-18 15:12 | WPDGIPROGNO ---
Progress Note: A&P Assessment and Plan (1) Acute necrotizing pancreatitis: Code(s): K85.91 - Acute pancreatitis with uninfected necrosis, unspecified Status: Acute Assessment and Plan: Patient with acute necrotizing pancreatitis. Clinically appears improved. He has been NPO with PPN at this time. Gradual decline in lipase is noted. Plan to start liquid diet in if possible decrease PPN. Hopefully we can increase diet at this time. At some point a follow-up CT scan may be required as well perhaps next week. Subjective Date/time seen: 08/18/21 15:12 Patient alert more comfortable today. He continues to require pain medications but abdomen is much less tender and painful. He remains very hungry. There has been a trend towards improvement of his lipase. Patient remains afebrile. Review of Systems Review of Systems: All systems reviewed & are unremarkable except as noted in HPI and below Exam Narrative: Physical exam reveals patient be alert. Vital signs stable. HEENT exam reveals no icterus. Lungs are clear. Heart without murmur. Abdomen soft flat nontender. Bowel sounds are apparent. Objective Data Vital Signs Vital Signs: Vital Signs - 24 hr 08/17/21 21:45 08/17/21 22:00 08/18/21 05:40 Temperature 98.0 F 99.7 F H Pulse Rate 91 91 77 Respiratory Rate 18 18 18 Blood Pressure 131/80 135/79 Pulse Oximetry 99 99 99 Intake/Output Intake/Output: Intake & Output 08/15/21 08/16/21 08/17/21 08/18/21 23:59 23:59 23:59 23:59 Intake Total 2990 5290 4640 1750 Balance 2990 5290 4640 1750 Meds/Results Medications: Active Medications Generic Name Dose Route Start Last Admin Trade Name Freq PRN Reason Stop Dose Admin Hydrocodone Bitart/Acetaminophen 1 tab 08/18/21 12:41 08/18/21 13:28 Hydrocodone/Acetaminophen (*Crx) 5-325 Mg Tablet PO 1 tab Q4H PRN Administration Pain Rated 4-6 Hydrocodone Bitart/Acetaminophen 1 tab 08/18/21 12:41 Hydrocodone/Acetaminophen (*Crx) 7.5-325 Mg Tablet PO Q4H PRN Pain Rated 7-10 Amlodipine Besylate 5 mg 08/09/21 10:15 08/18/21 10:21 Amlodipine Besylate 5 Mg Tablet PO 5 mg QAM GEOFFREY Administration Enoxaparin Sodium 40 mg 08/10/21 09:00 08/18/21 10:20 Enoxaparin 40 Mg/0.4 Ml Syringe SUB-Q 40 mg DAILY GEOFFREY Administration Hydromorphone HCl 1 mg 08/18/21 12:41 Hydromorphone Hcl Inj (*Crx) 1 Mg/Ml Syr IV PUSH Q3H PRN Breakthrough Pain Fat Emulsion Intravenous 250 mls @ 20.833 mls/hr 08/16/21 09:00 08/18/21 12:50 Lipids 20% IVPB 20.83 mls/hr DAILY GEOFFREY Administration Dextrose 1,000 mls @ 50 mls/hr 08/15/21 14:15 Dextrose 10% IV CONT .Q20H PRN if PN is interrupted Amino Acids/Electrolytes/Dextrose 2,000 mls @ 80 mls/hr 08/15/21 14:15 08/17/21 14:39 Clinimix E 4.25%/5% Solution IV CONT 80 mls/hr .Q24H GEOFFREY Administration Protocol Ibuprofen 600 mg 08/09/21 10:05 08/18/21 10:25 Ibuprofen 600 Mg Tablet PO 600 mg Q6H PRN Administration Pain 1-3 Melatonin 5 mg 08/11/21 21:00 08/17/21 21:42 Melatonin 5 Mg Tablet PO 5 mg HS GEOFFREY Administration Ondansetron HCl 4 mg 08/09/21 02:36 08/16/21 12:38 Ondansetron Inj 4 Mg/2 Ml Vial IV PUSH 4 mg Q4H PRN Administration Nausea Potassium Chloride 40 meq 08/13/21 09:00 08/18/21 10:21 Potassium Chloride 20 Meq Packet (For Liquid) PO 40 meq DAILY GEOFFREY Administration Radiology Results: ITS Impressions Chest X-Ray 08/09/21 08:42 IMPRESSION: 1. No acute cardiopulmonary disease. Chest/Abdomen/Pelvis CTA 08/09/21 08:43 IMPRESSION: 1. Acute necrotizing pancreatitis. 2. Mild groundglass opacities in right lung lower lobe, consistent with pneumonia. Venous Doppler Study 08/09/21 12:09 IMPRESSION: 1. No deep venous thrombosis in either lower limb. Abdomen Ultrasound 08/09/21 13:03 IMPRESSION: 1. Normal right upper quadrant ultrasound. The
[2021-08-18] MEDS: HYDROcodone/acetaminophen (*CRX) 7.5-325 MG TABLET 1 TAB PO ×2 (15:34→20:11)
[2021-08-18] MEDS: AMINO ACIDS 4.25%/D5W/LYTES/CA 2,000 ML 80 ML IV CONT (15:58)
[2021-08-18 17:12] LABS: Glucose Point of Care 131 mg/dl (65-105)
[2021-08-18] MEDS: MELATONIN 5 MG TABLET PO (20:11)
[2021-08-18] MEDS: FUROSEMIDE INJ 40 MG/4 ML VIAL IV PUSH (21:48)
[2021-08-18] MEDS: MORPHINE SULFATE (*CRX) 2 MG/ML INJ 1 MG IV PUSH (21:48)
[2021-08-18 21:57] VITALS: BP 129/74; PULSE 95; RESP 20; TEMP 36.8; O2SAT 100
[2021-08-19] MEDS: HYDROmorphone HCL INJ (*CRX) 1 MG/ML SYR IV PUSH ×3 (02:10→08:17)
[2021-08-19 05:20] LABS: Glucose Point of Care 164 mg/dl (65-105)
[2021-08-19 05:54] VITALS: BP 118/66; PULSE 82; RESP 16; TEMP 36.5; O2SAT 99
[2021-08-19 06:44] LABS: Hematocrit 38.4 % (42.0-52.0); Hemoglobin 12.2 g/dL (14.0-18.0); Mean Corpuscular HGB Conc 31.8 g/dl (32-36); Mean Corpuscular Hemoglobin 27.7 pg (26-34); Mean Corpuscular Volume 87.1 fl (80-100); Mean Platelet Volume 8.6 fl (7.4-10.4); Platelet Count Result 730 k/mm3 (150-375); Red Blood Count 4.41 M/mm3 (4.6-6.20); Red Cell Distribution Width 14.8 % (11.5-14.5); White Blood Count 8.1 K/mm3 (4.5-10.0)
[2021-08-19 06:51] LABS: Alanine Aminotransferase 45 U/L (4-50); Albumin Level 4.3 g/dL (3.5-5.1); Alkaline Phosphatase 70 U/L (38-126); Anion Gap 8 mmol/L (8-16); Aspartate Amino Transferase 40 U/L (17-59); Bilirubin,Total 0.3 mg/dL (0.2-1.3); Blood Urea Nitrogen 9 mg/dL (9-20); Calcium 10.1 mg/dL (8.4-10.2); Carbon Dioxide 31 mmol/L (22-30); Chloride 95 mmol/L (98-107); Estimated CRCL calculation 98 ml/min; Estimated Glomerular Filt Rate > 60; Glucose 117 mg/dL (65-110); Lipase 1018 U/L (23-300); Potassium 4.8 mmol/L (3.4-5.0); Sodium 134 mmol/L (137-145)
[2021-08-19] MEDS: ENOXAPARIN 40 MG/0.4 ML SYRINGE SUB-Q (08:23)
[2021-08-19] MEDS: POTASSIUM CHLORIDE 20 MEQ PACKET (FOR LIQUID) 40 MEQ PO (08:23)
[2021-08-19] MEDS: amLODIPine BESYLATE 5 MG TABLET PO (08:24)
--- NOTE | 2021-08-19 09:12 | WPDGIPROGNO ---
Progress Note: A&P Assessment and Plan (1) Acute necrotizing pancreatitis: Code(s): K85.91 - Acute pancreatitis with uninfected necrosis, unspecified Status: Acute Assessment and Plan: Patient with acute necrotizing pancreatitis. Etiology unclear but appeared to correlate with infection with COVID. Otherwise likely idiopathic. He has had some alcohol intake in this should be avoided for the immediate future. Clinically improving now with resolution of ileus he is having bowel movements. Tolerating diet. Lipase has decreased dramatically. Lipase 1018 this morning. Plan to advance diet to a low-fat diet. If diet tolerated pain under control without requiring pain injections he may be discharged. Follow-up CT scan should probably be performed in several weeks perhaps a month. Outpatient follow-up suggested in 1 month. Subjective Date/time seen: 08/19/21 09:12 Patient feels much improved today. Had several bowel movements. States abdominal pain is lessened to a great deal. Tolerating liquid diet with no difficulties. Review of Systems Review of Systems: All systems reviewed & are unremarkable except as noted in HPI and below Exam Narrative: Physical exam reveals patient be alert. Vital signs stable. HEENT exam unremarkable. Patient is anicteric. Lungs are clear. Heart without murmur. Abdomen bowel sounds are present soft no localized tenderness at present. Objective Data Vital Signs Vital Signs: Vital Signs - 24 hr 08/18/21 14:00 08/18/21 21:57 08/19/21 05:54 Temperature 98.3 F 98.2 F 97.7 F Pulse Rate 99 95 82 Respiratory Rate 20 20 16 Blood Pressure 139/71 129/74 118/66 Pulse Oximetry 99 100 99 Intake/Output Intake/Output: Intake & Output 08/16/21 08/17/21 08/18/21 08/19/21 23:59 23:59 23:59 23:59 Intake Total 5290 4640 5370 2120 Balance 5290 4640 5370 2120 Meds/Results Medications: Active Medications Generic Name Dose Route Start Last Admin Trade Name Freq PRN Reason Stop Dose Admin Hydrocodone Bitart/Acetaminophen 1 tab 08/18/21 12:41 08/18/21 13:28 Hydrocodone/Acetaminophen (*Crx) 5-325 Mg Tablet PO 1 tab Q4H PRN Administration Pain Rated 4-6 Hydrocodone Bitart/Acetaminophen 1 tab 08/18/21 12:41 08/18/21 20:11 Hydrocodone/Acetaminophen (*Crx) 7.5-325 Mg Tablet PO 1 tab Q4H PRN Administration Pain Rated 7-10 Amlodipine Besylate 5 mg 08/09/21 10:15 08/19/21 08:24 Amlodipine Besylate 5 Mg Tablet PO 5 mg QAM GEOFFREY Administration Enoxaparin Sodium 40 mg 08/10/21 09:00 08/19/21 08:23 Enoxaparin 40 Mg/0.4 Ml Syringe SUB-Q 40 mg DAILY GEOFFREY Administration Hydromorphone HCl 1 mg 08/18/21 12:41 08/19/21 08:17 Hydromorphone Hcl Inj (*Crx) 1 Mg/Ml Syr IV PUSH 1 mg Q3H PRN Administration Breakthrough Pain Ibuprofen 600 mg 08/09/21 10:05 08/18/21 16:20 Ibuprofen 600 Mg Tablet PO 600 mg Q6H PRN Administration Pain 1-3 Melatonin 5 mg 08/11/21 21:00 08/18/21 20:11 Melatonin 5 Mg Tablet PO 5 mg HS GEOFFREY Administration Ondansetron HCl 4 mg 08/09/21 02:36 08/16/21 12:38 Ondansetron Inj 4 Mg/2 Ml Vial IV PUSH 4 mg Q4H PRN Administration Nausea Potassium Chloride 40 meq 08/13/21 09:00 08/19/21 08:23 Potassium Chloride 20 Meq Packet (For Liquid) PO 40 meq DAILY GEOFFREY Administration Radiology Results: ITS Impressions Chest/Abdomen/Pelvis CTA 08/09/21 08:43 IMPRESSION: 1. Acute necrotizing pancreatitis. 2. Mild groundglass opacities in right lung lower lobe, consistent with pneumonia. Venous Doppler Study 08/09/21 12:09 IMPRESSION: 1. No deep venous thrombosis in either lower limb. Abdomen Ultrasound 08/09/21 13:03 IMPRESSION: 1. Normal right upper quadrant ultrasound. The region of necrotic pancreatitis seen at the tail of the pancreas on prior CT is not clearly visualized. Abdomen X-Ray 08/10/21 10:10 IMPRESSION: 1. Nonobstructiv
--- NOTE | 2021-08-19 12:03 | PM.IMPN ---
Progress Note: A&P Assessment and Plan (1) Acute necrotizing pancreatitis: Code(s): K85.91 - Acute pancreatitis with uninfected necrosis, unspecified Status: Acute Assessment and Plan: CTA w/ acute necrotizing pancreatitis. Repeat CT scan 08/15/2021 showed worsened necrotizing pancreatitis -Etiology for his pancreatitis is unclear, likely idiopathic. RUQ ultrasound negative. He drinks 4-6 beers per week, though he should avoid alcohol in the future to prevent recurrence of pancreatitis. HCTZ discontinued. -Lipase remains elevated but trending down. 1000 today -tolerating liquids. Advance to low fat diet -supportive care. Analgesics available as needed. Discontinue IV hydromorphone; oral analgesics only -hopeful discharge tomorrow if continued improvement -will need GI follow-up in [address] scan to assess for improvement (2) COVID-19: Code(s): U07.1 - COVID-19 Status: Acute Assessment and Plan: Tested positive for COVID-19 on 08/05/2021 at [facility] after being exposed to coworkers who were positive. -CXR is clear. CTA of the chest showed mild ground-glass opacities of the right lower lobe consistent with pneumonia. -Pt is doing well on room air -He is off isolation (3) Hypertension: Code(s): I10 - Essential (primary) hypertension Status: Inactive Assessment and Plan: Blood pressure elevated initially, likely due to pain. He has normalized. Last BP 118/66 -HCTZ discontinued -continue amlodipine 5 mg daily -Continue to monitor blood pressure trends and adjust medication regimen as needed (4) Elevated LFTs: Code(s): R79.89 - Other specified abnormal findings of blood chemistry Status: Acute Assessment and Plan: LFTs elevated on presentation -may be related to acute viral illness -RUQ ultrasound normal, no cholelithiasis -LFTs have normalized (5) Lactic acidosis: Code(s): E87.2 - Acidosis Status: Resolved Assessment and Plan: Resolved. -Was likely elevated due to necrotizing pancreatitis. (6) Elevated d-dimer: Code(s): R79.89 - Other specified abnormal findings of blood chemistry Status: Acute Assessment and Plan: D-dimer noted to be 1.75 on presentation. -CTA negative for pulmonary embolism -BLE Venous Doppler negative -likely secondary to COVID-19 (7) Insomnia: Code(s): G47.00 - Insomnia, unspecified Status: Acute Assessment and Plan: Improved but still having difficulty sleeping through the night because he is waking up in pain. -continue melatonin -pain control (8) Ileus: Code(s): K56.7 - Ileus, unspecified Status: Acute Assessment and Plan: [place] to be related to pancreatitis. -resolved -he has had several bowel movements -Dulcolax suppository as needed -Encourage ambulation Subjective Date/time seen: 08/19/21 12:03 Interval history: Date of service: 08/18/2021 Varsha Sun is a 26-year-old male with a history of hypertension and anxiety who is seen in follow-up for acute necrotizing pancreatitis. He is starting to feel little bit better today. He rates his pain about 5/10, but does note that has been up to 8/10 today. Still notes that the pain medication is not helping very much. He would like to switch to oral pain medication only today so that he can hopefully discharge tomorrow and remain off IV analgesics. He has done well with full liquids and would like to advance to low-fat diet. He denies shortness of breath, cough, or chest pain. No bowel movement today but he is passing flatus. No nausea or vomiting. Still having trouble sleeping. States he got about 1 continuous hour of sleep last night, otherwise slept intermittently Review of Systems Review of Systems: All systems reviewed & are unremarkable except as noted in HPI and below Exam Narrative: Mr. Sun is a w
[2021-08-19] MEDS: IBUPROFEN 600 MG TABLET PO (12:17)
[2021-08-19] MEDS: HYDROcodone/acetaminophen (*CRX) 7.5-325 MG TABLET 1 TAB PO ×2 (12:18→16:30)
--- NOTE | 2021-08-19 13:38 | PCNFU ---
Nutrition Follow-Up Complete: Altered GI function related to pancreatitis as evidenced by NPO and elevated lipase of 1308 Goal: Meet 50% of kcal needs on PPN Pt. is progressing towards goal. No new goal at this time. Pt current nutrition is a clear liquid diet. Last recorded weight is 78.8 kg. Recommend re-weighing pt. prior to discharge. Bowel Motility: + BM 08/18/2021 Labs Reviewed: Hgb 12.2, Hct 38.4, Na 134, Glu 117, Lipase 1018 Meds Noted: Lovenox, Potassium Chloride, Norvasc Skin: No skin breakdown at this time. WNL. Additional Notes: Diet order now advanced to clear liquids. PPN was discontinued 08/18/2021. Pt. reports being very hungry . Closely monitor oral intake and tolerance. Monitor labs, medications, weight and oral intake every three days
[2021-08-19 14:00] VITALS: BP 147/54; PULSE 91; RESP 16; TEMP 36.4; O2SAT 99
[2021-08-19] MEDS: HYDROmorphone HCL (*CRX) 1 MG TABLET 2 MG PO (20:33)
[2021-08-19] MEDS: MELATONIN 5 MG TABLET PO (20:38)
[2021-08-19 22:00] VITALS: BP 125/72; PULSE 84; RESP 18; TEMP 36.8; O2SAT 98
[2021-08-20] MEDS: HYDROmorphone HCL (*CRX) 1 MG TABLET 2 MG PO ×3 (00:38→11:17)
[2021-08-20] MEDS: IBUPROFEN 600 MG TABLET PO (05:22)
[2021-08-20 05:42] VITALS: BP 127/78; PULSE 97; RESP 18; TEMP 36.3; O2SAT 100
[2021-08-20 06:46] LABS: Anion Gap 5 mmol/L (8-16); Blood Urea Nitrogen 9 mg/dL (9-20); Calcium 10.2 mg/dL (8.4-10.2); Carbon Dioxide 32 mmol/L (22-30); Chloride 99 mmol/L (98-107); Estimated CRCL calculation 90 ml/min; Estimated Glomerular Filt Rate > 60; Glucose 106 mg/dL (65-110); Lipase 924 U/L (23-300); Potassium 4.7 mmol/L (3.4-5.0); Sodium 136 mmol/L (137-145)
[2021-08-20 08:00] VITALS: PULSE 97; RESP 18; O2SAT 100
[2021-08-20] MEDS: ENOXAPARIN 40 MG/0.4 ML SYRINGE SUB-Q (09:50)
[2021-08-20] MEDS: POTASSIUM CHLORIDE 20 MEQ PACKET (FOR LIQUID) 40 MEQ PO (09:52)
--- NOTE | 2021-08-20 10:18 | PM.DS ---
DS: Admitting Diagnosis Discharge Date 08/20/2021 Admitting Diagnosis Pancreatitis DS: Discharge Diagnosis Discharge Diagnosis (1) Acute necrotizing pancreatitis: Code(s): K85.91 - Acute pancreatitis with uninfected necrosis, unspecified Status: Acute Assessment and Plan: Presented with abdominal pain and lipase 536. CTA w/ acute necrotizing pancreatitis. He was seen in consultation by Gastroenterology. Lipase peaked at 3200 and slowly trended down to 924 at time of discharge. He did have difficulty advancing his diet, therefore repeat CT scan performed 08/15/2021 showed worsened necrotizing pancreatitis. Went back to NPO diet for bowel rest and PPN provided. He had slow improvement in symptoms and was able to slowly advance his diet to low-fat. Etiology for his pancreatitis is not clear, likely to be idiopathic. RUQ ultrasound negative. HCTZ discontinued. He does have some mild-moderate alcohol use, and was instructed to avoid alcohol to prevent recurrence. He will follow-up with gastroenterology as an outpatient in 1 month for further monitoring and repeat CT scan to assess for improvement. Short course of analgesics provided. (2) COVID-19: Code(s): U07.1 - COVID-19 Status: Acute Assessment and Plan: Tested positive for COVID-19 on 08/05/2021 at [facility] [place] after being exposed to coworkers who were positive. CXR was clear. CTA showed mild ground-glass opacities of the right lower lobe consistent with pneumonia. He had no oxygen requirement and therefore was not a candidate for COVID-19 specific therapy including dexamethasone or remdesivir. He is not vaccinated for COVID-19. Discussed follow-up with PCP to consider vaccination. (3) Hypertension: Code(s): I10 - Essential (primary) hypertension Status: Inactive Assessment and Plan: Blood pressure elevated initially, likely due to pain. His HCTZ was discontinued as above. Transition to p.o. amlodipine 5 mg daily and blood pressure was well controlled with this regimen. (4) Elevated LFTs: Code(s): R79.89 - Other specified abnormal findings of blood chemistry Status: Acute Assessment and Plan: LFTs elevated on presentation, possibly due to acute viral illness. Right quadrant ultrasound was normal without evidence of cholelithiasis. LFTs normalized (5) Lactic acidosis: Code(s): E87.2 - Acidosis Status: Resolved Assessment and Plan: Resolved. Was likely elevated due to necrotizing pancreatitis. (6) Elevated d-dimer: Code(s): R79.89 - Other specified abnormal findings of blood chemistry Status: Acute Assessment and Plan: D-dimer noted to be 1.75 on presentation, likely secondary to COVID-19.. CTA negative for pulmonary embolism. BLE Venous Doppler negative (7) Insomnia: Code(s): G47.00 - Insomnia, unspecified Status: Acute Assessment and Plan: Resolved. Melatonin as needed. Sleep hygiene discussed (8) Ileus: Code(s): K56.7 - Ileus, unspecified Status: Acute Assessment and Plan: [place] to be related to pancreatitis. Resolved. May take [id number] MiraLax or Dulcolax as needed to maintain regular bowel movements. Encouraged ambulation. DS: Summary Hospital Course Hospital Course: Date of admission: 08/08/2021 Date of discharge: 08/20/2021 Varsha Sun is a 26-year-old male with a history of hypertension and anxiety who presented to the emergency department on 08/08/2021 with complaints of vomiting and abdominal cramping for 3 days. On presentation to the emergency department, his vital signs were stable, he was afebrile, WBC 12,000, additional CBC and BMP unremarkable, D-dimer noted to be elevated at 1.75, lipase 536, lactic acid 3.5, and CTA chest/abdomen/pelvis showed acute necrotizing pancreatitis with mild ground-glass opacities of the right lower lobe consistent
[2021-08-20] MEDS: amLODIPine BESYLATE 5 MG TABLET PO (11:18)
--- NOTE | 2021-08-21 11:00 | PC.NURSE ---
Patient called stating that pain is continued. Patient stated that what he thought was his primary care doctor is no longer reachable. This nurse reached out to discharging hospitalist. Patient advised to go to nearest Emergency Room or Urgent Care based on pain needs. Patient given Dr. 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 Patient requesting Pierron 7.5mg instead of 5mg tablets. This nurse reiterated the need to schedule with a PCP and to follow up with the nearest ER or Urgent Care based on needs. Patient denies any vomiting and stated has had a BM 08/21/2021
== END 2021-08-20 12:30 | disposition home or self-care (01) | DRG 282 ==
LOC: ANHED 08-09 02:36 → ANH3MEDSUR 08-09 04:02
PROVIDERS: Family Medicine; Internal Medicine Gastroenterology; Physician Assistant; Admitting Provider Internal Medicine; Emergency Provider Emergency Medicine; Visit Provider Physician Assistant
DX: K85.00 Idiopathic acute pancreatitis without necrosis or infection (principal); U07.1 COVID-19; J12.82 Pneumonia due to coronavirus disease 2019; I10 Essential (primary) hypertension; E87.2 Acidosis; G47.00 Insomnia, unspecified; K56.7 Ileus, unspecified; F41.9 Anxiety disorder, unspecified; Z72.89 Other problems related to lifestyle
CPT/HCPCS: 36415; 71045; 71275; 74019; 74177; 76705; 80048; 80053; 80061; 80076; 81001; 82728; 82948; 83605; 83615; 83690; 83735; 84100; 84466; 84478; 85025; 85027; 85380; 85730; 86140; 93005; 93970; 96361; 96365; 96375; 96376; 99285; A9270; G0378; G0379; J0131; J1170; J1650; J1885; J1940; J2270; J2405; J7030; Q9967